=== PATIENT | female | born 2000 | race Caucasian/White ===

== ENCOUNTER 2022-03-17 15:09 | Emergency (ER) | payer MEDICAID, SELFPAY ==
[2022-03-17 15:14] VITALS: BP 122/81; PULSE 84; RESP 18; TEMP 36.2; O2SAT 98; BMI 40.6
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
== END 2022-03-17 18:05 | disposition home or self-care (01) ==
PROVIDERS: Emergency Provider Family Medicine; PCP Physician Assistant Medical
DX: S16.1XXA Strain of muscle, fascia and tendon at neck level, initial encounter (principal); V43.52XA Car driver injured in collision with other type car in traffic accident, initial encounter; Y92.413 State road as the place of occurrence of the external cause; Y93.89 Activity, other specified; Y99.8 Other external cause status
CPT/HCPCS: 71046; 72040; 99283

== ENCOUNTER 2022-05-02 16:23 | Outpatient (CLI) | payer MEDICAID, SELFPAY | END 2022-05-02 16:24 | disposition home or self-care (01) | PROVIDERS: PCP Physician Assistant Medical; Visit Provider Family Medicine | DX: R05.9 Cough, unspecified (principal) | CPT/HCPCS: 86615 ==

== ENCOUNTER 2022-09-13 15:31 | Outpatient (CLI) | payer MEDICAID, SELFPAY | END 2022-09-13 15:32 | disposition home or self-care (01) | PROVIDERS: PCP Physician Assistant Medical; Visit Provider Physician Assistant Medical | DX: E03.9 Hypothyroidism, unspecified (principal); R53.83 Other fatigue | CPT/HCPCS: 80053; 82306; 82607; 82728; 84439; 84443 ==

== ENCOUNTER 2022-12-25 21:06 | Outpatient (CLI) | payer MEDICAID, SELFPAY ==
--- NOTE | 2023-01-03 10:26 | W.PM.SLEEP ---
Sleep Study Details Details Interpreting Provider: Taty Date of Sleep Study: 12/25/22 Sleep Study Details: STUDY TYPE:? Hospital-based without CPAP titration ? BMI:? 42.2 ORDERING PROVIDER:? Taty INDICATION:? Concerns about sleep apnea ? SLEEP SUMMARY:? Total sleep time 392 minutes, efficiency 92.3, arousal index 40.4 RESPIRATORY SUMMARY:? Mean oxygen awake 95 asleep 94 minimum 83, 2.7 minutes oxygen between 80 and 88% AHI 17.6, RDI 27.4, supine REM AHI 36.3 PERIODIC LIMB MOVEMENTS OF SLEEP:? None were noted CARDIAC:? Awake 80, asleep 69. No arrhythmias noted IMPRESSION:? Moderate obstructive sleep apnea with an AHI of 17.6 an RDI of 27.4. There was significant REM dependency but minimal positional variation. RECOMMENDATION: Recommend AutoSet CPAP pressure 4-17. Weight loss is also recommended.
== END 2022-12-25 21:07 | disposition home or self-care (01) ==
LOC: SLEEP 21:07
PROVIDERS: PCP Physician Assistant Medical; Visit Provider Otolaryngology
DX: G47.33 Obstructive sleep apnea (adult) (pediatric) (principal)
CPT/HCPCS: 95810

== ENCOUNTER 2023-02-24 08:45 | Outpatient (CLI) | payer MEDICAID, SELFPAY | END 2023-02-24 08:46 | disposition home or self-care (01) | LOC: NFLDREF 02-26 07:25 | PROVIDERS: PCP Physician Assistant Medical; Referring Provider Physician Assistant Medical; Visit Provider Physician Assistant Medical | DX: E03.9 Hypothyroidism, unspecified (principal); F32.A Depression, unspecified; F41.9 Anxiety disorder, unspecified; K76.0 Fatty (change of) liver, not elsewhere classified; Z13.6 Encounter for screening for cardiovascular disorders | CPT/HCPCS: 80053; 80061; 84439; 84443 ==

== ENCOUNTER 2023-06-22 13:56 | Outpatient (CLI) | payer MEDICAID, SELFPAY | END 2023-06-22 13:57 | disposition home or self-care (01) | LOC: NFLDREF 06-23 05:49 | PROVIDERS: PCP Physician Assistant Medical; Referring Provider Physician Assistant Medical; Visit Provider Physician Assistant Medical | DX: E03.9 Hypothyroidism, unspecified (principal); K76.0 Fatty (change of) liver, not elsewhere classified; E66.01 Morbid (severe) obesity due to excess calories; F32.A Depression, unspecified | CPT/HCPCS: 84439; 84443; 84450; 84460 ==

== ENCOUNTER 2023-09-03 23:53 | Emergency (ER) | payer OTHER, MEDICAID, SELFPAY ==
[2023-09-04 00:18] VITALS: BP 144/95; PULSE 91; RESP 18; TEMP 36.6; O2SAT 97; BMI 46.3
[2023-09-04] MEDS: ACETAMINOPHEN 500 MG TABLET 1000 MG PO (00:36)
[2023-09-04] MEDS: KETOROLAC 10 MG TABLET PO (00:37)
--- NOTE | 2023-09-04 00:41 | ED.GENADULT ---
HPI - General Adult General Chief complaint: Skin/Abscess/Foreign Body Stated complaint: left toe pain, swollen ingrown Time Seen by Provider: 09/04/23 00:22 Source: patient Mode of arrival: ambulatory Limitations: no limitations History of Present Illness HPI narrative: 22-year-old female presents the emergency department for evaluation of what she thinks is an ingrown left toenail that has been present for 3 days. 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 She says that she went to her fuel technician for a pedicure today. They told her that there was no sign of an ingrown toenail. They completed the pedicure. Patient states that her symptoms have not improved and she thinks that something more in may need to be done. She did have drainage prior to the pedicure, none since. No fevers. She states that there is a little bit of redness around it, mother states that she marked the area of redness. It is quite difficult to appreciate. She says that the pain is throbbing. She tried taking some ibuprofen earlier in the day but none since. Has not tried Tylenol or any other interventions. No fevers. No recent surgeries. Not on chemotherapy, not immunocompromised. Past medical history notable for ADHD, anxiety and depression, hypothyroidism. Medications reviewed, list is accurate per EMR. ROS notable for the skin, musculoskeletal and general symptoms as above. Denies any other musculoskeletal, skin or general concerns. Related Data Home Medications Medication Instructions Recorded Confirmed multivitamin (Daily Multi-Vitamin 1 tab PO QAM 09/13/22 08/09/23 tablet) Previous Rx's Medication Instructions Recorded clonidine HCl 0.1 mg tablet See Rx Instructions .Route 06/22/23 .COMPLEX #90 tabs levonorgestrel 0.15 mg-ethinyl 1 tab PO DAILY #84 tabs 06/22/23 estradiol 0.03 mg tablet sertraline 100 mg tablet 100 mg PO DAILY #90 tabs 06/22/23 sertraline 50 mg tablet 50 mg PO QDAY #90 tabs 06/22/23 levothyroxine 112 mcg tablet 112 mcg PO QDAY #90 tabs 06/24/23 dextroamphetamine-amphetamine ER 20 mg PO QAM #30 caps 08/29/23 20 mg 24hr capsule,extend release (Adderall XR) dextroamphetamine-amphetamine ER 20 mg PO QAM #30 caps 08/29/23 20 mg 24hr capsule,extend release (Adderall XR) dextroamphetamine-amphetamine ER 20 mg PO QAM #30 caps 08/29/23 20 mg 24hr capsule,extend release (Adderall XR) nirmatrelvir 300 mg (150 mg See Rx Instructions PO .COMPLEX 08/29/23 x2)-ritonavir 100 mg tablet,dose #30 ea pack (Paxlovid) Allergies Allergy/AdvReac Type Severity Reaction Status Date / Time plum Allergy Intermediate Swelling Verified 08/09/23 17:30 of Lip/Tongue/Throat azithromycin AdvReac Mild Nausea and Verified 08/09/23 17:30 diarrhea apples Allergy Severe breathing Uncoded 08/09/23 17:30 difficulties, mouth swelling dairy AdvReac Intermediate Diarrhea Uncoded 08/09/23 17:30 PFSH PFS Medical History Sinusitis ?J32.9 - Chronic sinusitis, unspecified (ICD-10) Surgical History History of placement of ear tubes (06/22/07) ?Z96.22 - Myringotomy tube(s) status (ICD-10) History of adenoidectomy (06/22/07) ?Z90.89 - Acquired absence of other organs (ICD-10) Family History Brother Anxiety disorder Mother Hypothyroidism Biliary disease Social History Narrative: Does not drink alcohol Does not use illicit drugs Non-smoker What is your current living situation?: I presently have a place to live Problems where you live: no known problems In the past 12 months, utilities in danger of being shut off: no In past 12 months, lack of transportation kept you from medical appts, meetings, work, or getting things needed for daily living: no In the past 12 mos, have been you worried that your food would run out before you had money to buy more?: never true In the past 12 mos, the food you bought just didn't last and you didn't have money to buy more?: never true Smoking Status: Never smoker Do you use any of these nicotine containing products: None Second hand tobacco smoke exposure: No How often do you have a drink containing alcohol: never How often do you have six or more drinks on one occasion: Never AUDIT-C Alcohol total score: 0 Non-prescribed substance use: denies use How often does anyone, including family, friends and others, physically hurt you: never How often does anyone, including family, friends and others, insult or talk down to you: sometimes How often does anyone, including family, friends and others, threaten you with harm: never How often does anyone, including family, friends and others, scream or curse at you: sometimes Little interest or pleasure in doing things: not at all Feeling down, depressed, or hopeless: several days service: No Exam Const: Vital Signs, click to edit/add: Vital Signs - 24 hr 09/04/23 00:18 Temperature 97.9 F Pulse Rate [Pulse Oximeter] 91 Respiratory Rate 18 Blood Pressure [Le ft Upper Arm] 144/95 H Pulse Oximetry 97 Oxygen Delivery Me thod Room Air Documenting provider has reviewed patient's vital signs: yes Other: Mildly anxious but appears well nourished and well hydrated. Nontoxic. HENMT: Other: Lips appear acyanotic Eye: General eye: normal appearance of both eyes Resp: Common normals: normal respiratory effort Effort & inspection: able to speak in complete sentences Extremity: Other: both feet are examined. Right foot appears normal. Left foot with incredibly minimal color change at the medial 1st nail fold. I do not appreciate swelling. I do not appreciate any drainage. Fresh pedicure examined with excellent technique. No damage to the cuticles. Tender to palpation. Nursing triage also did not notice any significant abnormality on general inspection. Normal range of motion of toe and forefoot. No signs of swelling or tenderness at MTP joints. Plantar aspect appears normal. Remaining toes on left side also appear normal. Course Course ED Course: Minimal skin color change with absolutely no fluctuance, drainage, signs of cellulitis, abscess, gout or other major abnormality. I agree with a fuel technician that there does not seem to be any significant ingrown nail. Area was cleansed with an alcohol wipe and gently pressed back with Q-tip. I can see the entire nail edge very well and there is certainly no sign of ingrown toenail. I counseled patient and who I soon as her mother in the room that there could have been some inflammation but the nail trim has been done beautifully and no additional treatment is needed on my part. It does not seem as though there is persistent infection. I am very reassured that the nail has already drained. Antibiotics do not tend to help in these situations and can cause more harm than help. I recommend pain control and anti-inflammatories for a couple of days. She will be given Tylenol 1000 mg p.o. x1 here in the ED and 10 mg of Toradol. She is given an additional supply of Toradol from the vending machine in the lobby. Counseled that symptoms should be markedly better in 48 hours. Alarm symptoms that would warrant ED presentation were reviewed. She verbalizes understanding and agreement. See discharge instructions. Vital Signs Vital signs: Initial Vital Signs Temperature 97.9 F 09/04/23 00:18 Temperature Source Temporal Artery Scan 09/04/23 00:18 Pulse Rate 91 09/04/23 00:18 Respiratory Rate 18 09/04/23 00:18 Blood Pressure 144/95 H 09/04/23 00:18 Blood Pressure Mean 111 H 09/04/23 00:18 Blood Pressure Position Sitting 09/04/23 00:18 Pulse Oximetry 97 09/04/23 00:18 Oxygen Delivery Method Room Air 09/04/23 00:18 Vital Signs Temperature 97.9 F 09/04/23 00:18 Pulse Rate 91 09/04/23 00:18 Respiratory Rate 18 09/04/23 00:18 Blood Pressure 144/95 H 09/04/23 00:18 Pulse Oximetry 97 09/04/23 00:18 Oxygen Delivery Method Room Air 09/04/23 00:18 Temperature 97.9 F 09/04/23 00:18 Pulse Rate 91 09/04/23 00:18 Respiratory Rate 18 09/04/23 00:18 Blood Pressure 144/95 H 09/04/23 00:18 Pulse Oximetry 97 09/04/23 00:18 Oxygen Delivery Method Room Air 09/04/23 00:18 Medications Administered Medications: Generic Name Dose Route Start Last Admin Trade Name Freq PRN Reason Stop Dose Admin Acetaminophen 1,000 mg 09/04/23 00:34 09/04/23 00:36 Acetaminophen 500 Mg Tablet PO 09/04/23 00:35 1,000 mg ONCE ONE Administration Ketorolac Tromethamine 10 mg 09/04/23 00:34 09/04/23 00:37 Ketorolac 10 Mg Tablet PO 09/04/23 00:35 10 mg ONCE ONE Administration Discharge Plan Discharge Clinical Impression: Nail abnormality Patient Disposition: Home w/ Parent or Adult Condition: Stable Additional Instructions: I agree with your fuel technician, there is no ingrown nail. That does not mean that there was not inflammation on the nail edge which is more common. I am glad to hear that there was drainage, this is a sign that your body has tried to definitively correct the problem. There does not appear to be any additional fluid for me to drain. These areas of inflammation can happen along the nail edge in those that walk with the pressure of there foot too far forward, those that where point he tipped shoes, and those that are just susceptible. Your technician helper instrument did an excellent job trimming the edges and there is no benefit to me doing an additional cut down. Apply plain Vaseline along the nail edge or antibiotic ointment a couple of times per day for the next 3 days and gently push back the skin edge and or cuticle as I demonstrated here today. There is no need for an antibiotic. Hearing that the nail drained is the most important step in treatment. I do not see any further evidence of a foreign body or fungal infection. If you start to notice increased swelling, soak the foot in very warm soapy water for 45 minutes twice daily to help promote drainage and then gently push back the cuticles and skin edge again. In the future, treatment for this at home would be soaks and antibiotic ointment as described above. For pain, I recommend Tylenol 1000 mg every 6 hours. I have also given you a prescription for Toradol which is an anti-inflammatory medication. Take 1 tablet up to every 6 hours as needed. This should be markedly better in 48 hours. do not take additional Aleve or ibuprofen while you are using the Toradol. If you are not noticing any improvement after 48 hours, I would make a follow-up appointment in my primary care clinic and or urgent care. Any symptoms of severe infection would warrant emergency department evaluation. You may return to unrestricted work and or school. Activity Level: No Restrictions Discharge Diet: Regular Prescriptions: No Action clonidine HCl 0.1 mg tablet See Rx Instructions .ROUTE .COMPLEX Qty: 90 3RF Dose Instruction: TAKE ONE TABLET BY MOUTH AT BEDTIME . Rx Instructions: TAKE ONE TABLET BY MOUTH AT BEDTIME . sertraline 100 mg tablet 100 mg PO DAILY Qty: 90 3RF sertraline 50 mg tablet 50 mg PO QDAY Qty: 90 3RF levonorgestrel-ethinyl estrad 0.15-0.03 mg tablet 1 tab PO DAILY Qty: 84 4RF multivitamin [Daily Multi-Vitamin] Tablet 1 tab PO QAM levothyroxine 112 mcg tablet 112 mcg PO QDAY Qty: 90 0RF dextroamphetamine-amphetamine [Adderall XR] 20 mg capsule,extended release 24hr 20 mg PO QAM Qty: 30 0RF dextroamphetamine-amphetamine [Adderall XR] 20 mg capsule,extended release 24hr 20 mg PO QAM Qty: 30 0RF dextroamphetamine-amphetamine [Adderall XR] 20 mg capsule,extended release 24hr 20 mg PO QAM Qty: 30 0RF Paxlovid 300 mg (150 mg x 2)-100 mg tablets,dose pack See Rx Instructions PO .COMPLEX Qty: 30 0RF Rx Instructions: take TWO 150 mg tablets of nirmatrelvir with ONE 100 mg tablet of ritonavir twice daily for 5 days PO Follow Up/Referrals: Trent Ch PA-C [Primary Care Provider] - Stand Alone Forms: [facility] Info Instructions
[2023-09-04 00:51] VITALS: RESP 16; O2SAT 98
== END 2023-09-04 00:55 | disposition home or self-care (01) ==
LOC: ED 09-04 00:53
PROVIDERS: Emergency Provider Family Medicine; PCP Physician Assistant Medical
DX: L60.8 Other nail disorders (principal)
CPT/HCPCS: 99283; A9270

== ENCOUNTER 2023-10-20 16:04 | Emergency (ER) | payer OTHER, SELFPAY ==
[2023-10-20 16:09] VITALS: BP 137/75; PULSE 102; RESP 18; TEMP 36.7; O2SAT 96; BMI 47.6
--- NOTE | 2023-10-20 16:22 | CT_ITS ---
Patient: GE MORA Facility:?[facility] Patient ID:?[id number] Site Patient ID:?[id number]. Site :?[id number] Study:?CT-Abdomen/Pelvis W/128CC [id number]/26/2024 5:07:19 PM Ordering Physician:DEBBY Final Report: INDICATION: Left abdomen pain. TECHNIQUE: CT abdomen and pelvis acquired with 128 mL Isovue 370 contrast. COMPARISON: CT abdomen/pelvis dated 01/15/2021. FINDINGS: Lower chest: No focal consolidation. Liver: No suspicious focal hepatic lesion. Gallbladder and bile ducts: Unremarkable. Pancreas: Unremarkable. Spleen: Unremarkable. Adrenal glands: Unremarkable. Kidneys: Kidneys enhance symmetrically, without hydronephrosis. Retroperitoneum: No lymphadenopathy. Bowel and mesentery: Bowel is not obstructed. No significant ascites, no pneumoperitoneum. Normal appendix. Scattered prominent but subcentimeter mid abdominal mesenteric lymph nodes, not significantly changed. Bladder: Unremarkable for degree of distention. Reproductive organs: Unremarkable. Pelvic lymph nodes: No lymphadenopathy. Vessels: Unremarkable. Abdominal wall: No acute abdominal wall abnormality. Bones: No suspicious/aggressive focal osseous lesion. IMPRESSION: 1. No acute intra-abdominal abnormality identified. 2. 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 Please note that all CT scans at this facility use dose modulation, iterative reconstruction, and/or weight-based dosing when appropriate to reduce radiation dose to as low as reasonably achievable. Dictated by Tere Herrera MD @ 10/20/2023 5:54:13 PM Signed by:?eTre Herrera MD @10/20/2023 5:54:13 PM (Electronic Signature)
--- NOTE | 2023-10-20 16:24 | ED_ITS ---
HPI - General Adult General Chief complaint: Diarrhea Stated complaint: abdominal pain Time Seen by Provider: 10/20/23 16:06 History of Present Illness HPI narrative: This 22-year-old female comes in reporting left-sided abdominal pain that began yesterday. She has had some nausea, vomiting, and diarrhea. She states that the pain is something that comes and goes and sometimes gets rather intense. She does not report any symptoms of dysuria. There is no blood in the diarrhea or vomit. She does report a temperature measured at 101.3? prior to arrival. She arrives here with normal vital signs and a borderline tachycardia. She does report history of IBS but states that these symptoms seemed different. Related Data Home Medications Medication Instructions Recorded Confirmed multivitamin (Daily Multi-Vitamin 1 tab PO QAM 09/13/22 09/28/23 tablet) Previous Rx's Medication Instructions Recorded clonidine HCl 0.1 mg tablet See Rx Instructions .Route 06/22/23 .COMPLEX #90 tabs levonorgestrel 0.15 mg-ethinyl 1 tab PO DAILY #84 tabs 06/22/23 estradiol 0.03 mg tablet sertraline 100 mg tablet 100 mg PO DAILY #90 tabs 06/22/23 sertraline 50 mg tablet 50 mg PO QDAY #90 tabs 06/22/23 levothyroxine 112 mcg tablet 112 mcg PO QDAY #90 tabs 06/24/23 dextroamphetamine-amphetamine ER 20 mg PO QAM #30 caps 08/29/23 20 mg 24hr capsule,extend release (Adderall XR) dextroamphetamine-amphetamine ER 20 mg PO QAM #30 caps 08/29/23 20 mg 24hr capsule,extend release (Adderall XR) dextroamphetamine-amphetamine ER 20 mg PO QAM #30 caps 08/29/23 20 mg 24hr capsule,extend release (Adderall XR) ketorolac 10 mg tablet 10 mg PO Q8H 5 days #15 tabs 10/20/23 ondansetron HCl 4 mg tablet 4 mg PO Q6H #10 tabs 10/20/23 Allergies Allergy/AdvReac Type Severity Reaction Status Date / Time plum Allergy Intermediate Swelling Verified 09/28/23 18:07 of Lip/Tongue/Throat azithromycin AdvReac Mild Nausea and Verified 09/28/23 18:07 diarrhea apples Allergy Severe breathing Uncoded 09/28/23 18:07 difficulties, mouth swelling dairy AdvReac Intermediate Diarrhea Uncoded 09/28/23 18:07 Review of Systems Status of ROS: Reports: 10 or more systems reviewed and unremarkable except as noted in History and below Narrative: Constitutional: No fevers, no weight gain or loss. Eyes: No discharge. No vision changes. HENT: No congestion, no sore throat, no ear pain. Cardiovascular: No chest pain, no palpitations. Respiratory: No shortness of breath, no wheezes, no cough. Gastrointestinal: Abdominal pain on the left side with report of vomiting and diarrhea. Genitourinary: No dysuria, no hematuria. Musculoskeletal: Normal range of motion. Skin: No rashes, no pruritis. Neurological: No dizziness, weakness, sensory change, speech change. Endo/Heme/Allergies: No bruising or bleeding. No polydipsia. Pysch: no suicidality, no anxiety, no insomnia. All other systems reviewed and are negative. [facility] Medical History Sinusitis ?J32.9 - Chronic sinusitis, unspecified (ICD-10) Surgical History History of placement of ear tubes (06/22/07) ?Z96.22 - Myringotomy tube(s) status (ICD-10) History of adenoidectomy (06/22/07) ?Z90.89 - Acquired absence of other organs (ICD-10) Family History Brother Anxiety disorder Mother Hypothyroidism Biliary disease Social History Narrative: Does not drink alcohol Does not use illicit drugs Non-smoker What is your current living situation?: I presently have a place to live Problems where you live: no known problems In the past 12 months, utilities in danger of being shut off: no In past 12 months, lack of transportation kept you from medical appts, meetings, work, or getting things needed for daily living: no In the past 12 mos, have been you worried that your food would run out before you had money to buy more?: never true In the past 12 mos, the food you bought just didn't last and you didn't have money to buy more?: never true Smoking Status: Never smoker Do you use any of these nicotine containing products: None Second hand tobacco smoke exposure: No How often do you have a drink containing alcohol: never How often do you have six or more drinks on one occasion: Never AUDIT-C Alcohol total score: 0 Non-prescribed substance use: denies use How often does anyone, including family, friends and others, physically hurt you : never How often does anyone, including family, friends and others, insult or talk down to you: sometimes How often does anyone, including family, friends and others, threaten you with harm: never How often does anyone, including family, friends and others, scream or curse at you: sometimes Little interest or pleasure in doing things: not at all Feeling down, depressed, or hopeless: several days service: No Exam Narrative: Exam Narrative: Constitutional: Well-developed, well-nourished, no acute distress. HEENT: Normocephalic, atraumatic. Neck: Normal range of motion. Nontender. Supple. Heart: Regular. No murmurs. Normal rate. Intact distal pulses. Lungs: Clear to auscultation. No chest discomfort. No wheezes, rhonchi, or rales. Abdomen: Normal bowel sounds. Left sided abdominal pain. No rebound tenderness. Genitalia: Deferred. Back: No midline tenderness. Normal range of motion. Extremities: Normal range of motion. No injury. Skin: Intact. No rash. Warm. No erythema or pallor. Neurologic: No altered sensation. No weakness. Alert and oriented. Psychiatric: No suicidality. No anxiety or depression. No insomnia. Nursing notes and vitals signs are reviewed. Const: Vital Signs, click to edit/add: Vital Signs - 24 hr 10/20/23 16:09 10/20/23 18:00 Temperature 98.1 F Pulse Rate [Pulse Oximeter] 102 H 87 Respiratory Rate 18 20 Blood Pressure [Ri ght Upper Arm] 137/75 125/71 Pulse Oximetry 96 97 Oxygen Delivery Me thod Room Air Room Air Course Vital Signs Vital signs: Initial Vital Signs Temperature 98.1 F 10/20/23 16:09 Temperature Source Temporal Artery Scan 10/20/23 16:09 Pulse Rate 102 H 10/20/23 16:09 Respiratory Rate 18 10/20/23 16:09 Blood Pressure 137/75 10/20/23 16:09 Blood Pressure Mean 95 10/20/23 16:09 Blood Pressure Position Sitting 10/20/23 16:09 Pulse Oximetry 96 10/20/23 16:09 Oxygen Delivery Method Room Air 10/20/23 16:09 Vital Signs Temperature 98.1 F 10/20/23 16:09 Pulse Rate 102 H 10/20/23 16:09 Respiratory Rate 18 10/20/23 16:09 Blood Pressure 137/75 10/20/23 16:09 Pulse Oximetry 96 10/20/23 16:09 Oxygen Delivery Method Room Air 10/20/23 16:09 Temperature 98.1 F 10/20/23 16:09 Pulse Rate 87 10/20/23 18:00 Respiratory Rate 20 10/20/23 18:00 Blood Pressure 125/71 10/20/23 18:00 Pulse Oximetry 97 10/20/23 18:00 Oxygen Delivery Method Room Air 10/20/23 18:00 Medications Administered Medications: Discontinued Medications Generic Name Dose Route Start Last Admin Trade Name Freq PRN Reason Stop Dose Admin Sodium Chloride 1,000 mls @ 1,000 mls/hr 10/20/23 16:30 10/20/23 18:19 0.9 % Sodium Chloride 1000 Ml IV 10/20/23 17:29 Infused .Q1H TAVON Infusion Medical Decision Making MDM Narrative Medical decision making narrative: This 22-year-old female comes in reporting abdominal pain with vomiting and diarrhea as described above. An IV was established where she received fluids and labs are acquired. CT imaging also is obtained. These tests returned with no acute intra-abdominal abnormality identified on the scan and lab results also are reassuring. This patient does report history of irritable bowel syndrome but states that these symptoms are different somewhat. She has not typically had vomiting. She may have a gastroenteritis. She is okay to be discharged home. She did receive an IV dose of Toradol 15 mg and Zofran 4 mg. Prescriptions for these same medicines are also provided going forward. Lab Data Labs: Lab Results 10/20/23 10/20/23 Range/Units 16:35 18:56 WBC 7.36 (4.50-11.00) K/uL RBC 4.74 (4.00-5.20) m/uL Hgb 13.7 (12.0-16.0) gm/dL Hct 41.5 (33.0-51.0) % MCV 88 (80-100) fL MCH 29 (26-34) pg MCHC 33 (32-36) gm/dL RDW Coeff of Trav 13.7 (11.5-15.5) % Plt Count 314 (140-440) K/uL Neut % (Auto) 79.2 H (42.0-72.0) % Lymph % (Auto) 9.8 L (20-44) % [place] % (Auto) 9.4 (0.0-11.0) % Eos % (Auto) 1.2 (0.0-7.0) % Baso % (Auto) 0.3 (0.0-3.0) % Neut # (Auto) 5.80 (1.7-7.0) K/uL Lymph # (Auto) 0.70 L (0.90-2.90) K/uL [place] # (Auto) 0.70 (0.00-0.90) K/UL Eos # (Auto) 0.09 (0.00-0.50) K/uL Baso # (Auto) 0.02 (0.00-0.30) K/uL Abs Immat Gran (auto) 0.01 (0.00-0.30) K/uL Imm/Tot Granulo (auto) 0.1 % Sodium 139 (135-149) mmol/L Potassium 3.6 (3.6-5.1) mmol/L Chloride 107 (96-114) mmol/L Carbon Dioxide 21 (20-32) mmol/L Anion Gap 11 (7-15) mEq/L BUN 14 (5-24) mg/dL Creatinine 0.8 (0.5-1.5) mg/dL Estimated Creat Clear 85.76 Estimated GFR 105 ml/min Glucose 92 (60-115) mg/dL Calcium 9.3 (8.4-10.6) mg/dL Urine Color Yellow (Yellow) Urine Appearance Clear (Clear) Urine pH 6.0 (5.0-8.5) Ur Specific [place] <= 1.005 (1.000-1.030) Urine Protein Negative (Negative) Urine Glucose (UA) Negative (Negative) Urine Ketones 2+ A (Negative) Urine Blood Negative (Negative) Urine Nitrite Negative (Negative) Urine Bilirubin Negative (Negative) Urine Urobilinogen 0.2 (0.2-1.0) Ur Leukocyte Esterase Negative (Negative) Urine RBC 0-2 (0-2) Urine WBC 0-2 (0-5) Ur Squamous Epith Cells None (None-Few) Urine Bacteria Few A (None) Imaging Data CT scan - abdomen: Radiologist's impression: 1. No acute intra-abdominal abnormality identified. 2. 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 Discharge Plan Discharge Clinical Impression: Gastroenteritis Patient Disposition: Home w/ Parent or Adult Additional Instructions: Take medication as needed and directed. Frequent sips of fluids and increase diet as tolerated. Follow up with MD return if worsening. Prescriptions: New ondansetron HCl 4 mg tablet 4 mg PO Q6H Qty: 10 0RF ketorolac 10 mg tablet 10 mg PO Q8H 5 Days Qty: 15 0RF No Action clonidine HCl 0.1 mg tablet See Rx Instructions .ROUTE .COMPLEX Qty: 90 3RF Dose Instruction: TAKE ONE TABLET BY MOUTH AT BEDTIME . Rx Instructions: TAKE ONE TABLET BY MOUTH AT BEDTIME . sertraline 100 mg tablet 100 mg PO DAILY Qty: 90 3RF sertraline 50 mg tablet 50 mg PO QDAY Qty: 90 3RF levonorgestrel-ethinyl estrad 0.15-0.03 mg tablet 1 tab PO DAILY Qty: 84 4RF multivitamin [Daily Multi-Vitamin] Tablet 1 tab PO QAM levothyroxine 112 mcg tablet 112 mcg PO QDAY Qty: 90 0RF dextroamphetamine-amphetamine [Adderall XR] 20 mg capsule,extended release 24hr 20 mg PO QAM Qty: 30 0RF dextroamphetamine-amphetamine [Adderall XR] 20 mg capsule,extended release 24hr 20 mg PO QAM Qty: 30 0RF dextroamphetamine-amphetamine [Adderall XR] 20 mg capsule,extended release 24hr 20 mg PO QAM Qty: 30 0RF Follow Up/Referrals: Trent Ch, EDUARDOC [Primary Care Provider] - Stand Alone Forms: [facility] Info Instructions
[2023-10-20 16:43] LABS: Basophils Absolute Auto 0.02 K/uL (0.00-0.30); Basophils Percent Auto 0.3 % (0.0-3.0); Eosinophils Absolute Auto 0.09 K/uL (0.00-0.50); Eosinophils Percent Auto 1.2 % (0.0-7.0); Hematocrit 41.5 % (33.0-51.0); Hemoglobin* 13.7 gm/dL (12.0-16.0); Immature Granulocytes Abs Auto 0.01 K/uL (0.00-0.30); Immature Granulocytes Pct Auto 0.1 %; Lymphocytes Percent Auto 9.8 % (20-44); Mean Corpuscular HGB Conc 33 gm/dL (32-36); Mean Corpuscular Hemoglobin 29 pg (26-34); Mean Corpuscular Volume 88 fL (80-100); Monocytes Percent Auto 9.4 % (0.0-11.0); Neutrophils Percent Auto 79.2 % (42.0-72.0); Platelet Count* 314 K/uL (140-440); RDW Coefficient of Variation % 13.7 % (11.5-15.5); Red Blood Count 4.74 m/uL (4.00-5.20); White Blood Count* 7.36 K/uL (4.50-11.00)
[2023-10-20 16:44] LABS: Slide Review Reflex No
[2023-10-20 17:01] LABS: Chloride* 107 mmol/L (96-114); Potassium* 3.6 mmol/L (3.6-5.1); Sodium* 139 mmol/L (135-149)
[2023-10-20 17:04] LABS: Anion Gap 11 mEq/L (7-15); Blood Urea Nitrogen* 14 mg/dL (5-24); Carbon Dioxide* 21 mmol/L (20-32); Creatinine* 0.8 mg/dL (0.5-1.5); Est. Creatinine Clearance* 85.76; Estimated Glomerular Filt Rate 105 ml/min
[2023-10-20 17:05] LABS: Calcium* 9.3 mg/dL (8.4-10.6); Glucose* 92 mg/dL (60-115)
[2023-10-20] MEDS: 0.9 % SODIUM CHLORIDE 1000 ml 1,000 ML IV (17:05)
[2023-10-20 18:00] VITALS: BP 125/71; PULSE 87; RESP 20; O2SAT 97
[2023-10-20 19:02] LABS: Appearance Urine Clear (Clear); Bilirubin Urine Negative (Negative); Blood Urine Negative (Negative); Color Urine Yellow (Yellow); Glucose Urine Negative (Negative); Ketones Urine 2+ (Negative); Leukocyte Esterase Urine Negative (Negative); Nitrite Urine Negative (Negative); Protein Urine Negative (Negative); Specific Gravity Urine <= 1.005 (1.000-1.030); Urobilinogen Urine 0.2 (0.2-1.0)
[2023-10-20 19:12] LABS: Bacteria Urine Few; RBC Urine 0-2 (0-2); WBC Urine 0-2 (0-5)
== END 2023-10-20 19:48 | disposition home or self-care (01) ==
PROVIDERS: Emergency Provider Emergency Medicine Emergency Medical Services; PCP Physician Assistant Medical
DX: K52.9 Noninfective gastroenteritis and colitis, unspecified (principal)
CPT/HCPCS: 36415; 74177; 80048; 81001; 85025; 87086; 96361; 96374; 96375; 99284; 99285; J7030; Q9967

== ENCOUNTER 2023-12-29 09:10 | Outpatient (CLI) | payer OTHER, SELFPAY | END 2023-12-29 09:11 | disposition home or self-care (01) | LOC: NFLDREF 12-31 10:06 | PROVIDERS: PCP Physician Assistant Medical; Referring Provider Physician Assistant Medical; Visit Provider Physician Assistant Medical | DX: E03.9 Hypothyroidism, unspecified (principal) | CPT/HCPCS: 84443 ==

== ENCOUNTER 2024-08-01 15:25 | Outpatient (CLI) | payer BC, SELFPAY | END 2024-08-01 15:26 | disposition home or self-care (01) | LOC: NFLDREF 08-07 03:24 | PROVIDERS: PCP Physician Assistant Medical; Referring Provider Physician Assistant Medical; Visit Provider Physician Assistant Medical | DX: E03.9 Hypothyroidism, unspecified (principal); E66.01 Morbid (severe) obesity due to excess calories; K76.0 Fatty (change of) liver, not elsewhere classified; F41.9 Anxiety disorder, unspecified; F32.A Depression, unspecified; F51.01 Primary insomnia | CPT/HCPCS: 80053; 80061; 84439; 84443 ==

== ENCOUNTER 2024-08-12 11:13 | Outpatient (CLI) | payer BC, SELFPAY ==
[2024-08-14 16:44] LABS: HPV Source Cervix; HPV, High Risk by TMA Detected
[2024-08-14 21:28] LABS: HPV Genotype 16 by TMA Not Detected; HPV Genotype 18/45 by TMA Not Detected; HPVG Source Cervix
== END 2024-08-12 11:14 | disposition home or self-care (01) ==
PROVIDERS: PCP Physician Assistant Medical; Visit Provider Physician Assistant
DX: Z12.4 Encounter for screening for malignant neoplasm of cervix (principal); Z11.51 Encounter for screening for human papillomavirus (HPV)
CPT/HCPCS: 87624; 87625; 88141; 88142

== ENCOUNTER 2025-04-17 21:56 | Day surgery (SDC) | payer BC, SELFPAY ==
--- OUTSIDE RECORDS SUMMARY | 2025-04-17 21:59 | XMS_ITS | Clinical Summary ---
Author Organization [facility] Address [address] [place] [id number] Care Team Providers Care Food Sampler Name Role Phone Trent Ch PA-C Primary Care Provider [phone] Allergies Active Allergy Reactions Criticality Noted Date Comments Azithromycin Nausea And Vomiting, Nausea Only,Vomiting Low 01/15/2021 Milk Diarrhea High 03/01/2019 Medications cloNIDine HCl (CATAPRES) 0.1 mg tablet Take 0.1 mg by mouth. Active dextroamphetamin e-amphetamine (ADDERALL) 20 mg tablet Take 25 mg by mouth. Active escitalopram oxalate (LEXAPRO) 10 mg tablet Take 10 mg by mouth once daily. 5 12/17/2018 Active ipratropium (ATROVENT HFA) 17 mcg/actuation inhaler Inhale 2 Puffs by mouth. 06/02/2018 Active melatonin 3 mg tablet Take 3 mg by mouth. Active levothyroxine (SYNTHROID) 100 mcg tablet Take 100 mcg by mouth once daily. 03/01/2023 Active sertraline (ZOLOFT) 100 mg tablet Take 150 mg by mouth once daily. 03/15/2023 Active levonorgestrel-e thinyl estrad, 0.15-30 mg-mcg, (LEVLEN; NORDETTE-28) 0.15-0.03 mg tablet Active Active Problems No known active problems Family History Relation Name Status Comments Father Alive Mother Alive Social History Tobacco Use Types Packs/Day Years Used Date Smoking Tobacco: Never Smokeless Tobacco: Never Alcohol Use Standard Drinks/Week Comments Yes 0 (1 standard drink = 0.6 oz pur e alcohol) Comments No Sex and Gender Information Value Date Recorded Sex Assigned at Not on file Legal Sex Female 10:33 AM CDT Gender Identity Not on file Sexual Orientation Not on file Obstetrics History Last Filed Vital Signs Vital Sign Reading Time Taken Comments Blood Pressure 114/77 05/20/2023 12:06 PM PSYCHOLOGY ASSISTANT Pulse 84 05/20/2023 12:06 PM PSYCHOLOGY ASSISTANT Temperature 36.4 C (97.5 F) 05/20/2023 12:06 PM PSYCHOLOGY ASSISTANT Respiratory Rate 20 05/20/2023 12:06 PM PSYCHOLOGY ASSISTANT Oxygen Saturation 97% 05/20/2023 12:06 PM PSYCHOLOGY ASSISTANT Inhaled Oxygen Concentration - - Weight 108.9 kg (240 lb) 05/20/2023 12:06 PM PSYCHOLOGY ASSISTANT Height 157.5 cm (5' 2) 05/20/2023 12:06 PM PSYCHOLOGY ASSISTANT Body Mass Index 43.9 05/20/2023 12:06 PM PSYCHOLOGY ASSISTANT Plan of Treatment Health Maintenance Due Date Last Done Comments Tetanus booster 2009 Depression screening for age 12+ 2010 HIV for age 15-65 2013 HPV series for age 9-45 (1 - 3-dose series) 2013 Hepatitis C screening for ag e 18-79 2016 Hepatitis B series for 19+ ( 1 of 3 - 19+ 3-dose series) 2017 Pap test for age 21-65 11/11/2019 BMI (ht and wt on same day) for age 18+ 05/14/2024 05/14/2023 COVID-19 vaccine series ( season) 2025 06/05/2021, 10/04/2020, 09/06/2020 Influenza Vaccine (#1) 2025 RSV vaccine for adults or (1 - 1-dose 75+ series) 2073 Pneumococcal series for age 6-49 Aged Out No longer eligible b ased on patient's age to complete this topic Insurance [place] [id number] [place] [id number] Care Teams Food Sampler Relationship Specialty Start Date End Date Trent Ch PA-C [address] [place] [id number] PCP - General Physician Tomato Grader 05/20/23
--- OUTSIDE RECORDS SUMMARY | 2025-04-17 21:59 | XMS_ITS | Clinical Summary ---
Author Organization [facility] Address [address], [place] [address] Care Team Providers Care Cheese Weigher Name Role Phone Narendra Piper MD Primary Care Provider + Source Comments You are receiving this document as you are listed as the primary care provider,follow-up provider, or the patient has been referred to you for consultation.This is in compliance with the Medicare andOhio[facility] Cent[facility]aid EHR Incentive Program,which states Providers who transition their patient to another setting of careor provider of care or refers their patient to another provider of care shouldprovide summary care record for each transition of care or referral. [facility] All[facility] No known active allergies Medications cloNIDine (CATAPRES) 0.1 MG tablet Take 0.1 mg by mouth two times a day. Active escitalopram oxalate (LEXAPRO) 10 MG tablet Take 10 mg by mouth daily. Active amphetamine-dext roamphetamine (ADDERALL) 20 MG tablet Take 20 mg by mouth daily. Active melatonin 3 MG tablet Take 3 mg by mouth daily at bedtime. Active azithromycin (ZITHROMAX) 250 MG tabletIndication s:Lower respiratory tract infection Take two tablets on the first day, and take one tablet each day on days 2-5 6 Tablet 8 Active Additional Information Patient not taking.Reported on 01/11/2020 ipratropium (ATROVENT HFA) 17 mcg/actuation inhalerIndicatio ns:Lower respiratory tract infection Inhale 2 Puffs two times a day. 12.9 g 8 Active Active Problems No known active problems Social History Tobacco Use Types Packs/Day Years Used Date Smoking Tobacco: Never Smokeless Tobacco: Never Alcohol Use Standard Drinks/Week Comments Yes 0 (1 standard drink = 0.6 oz pur e alcohol) Comments No Sex and Gender Information Value Date Recorded Sex Assigned at Not on file Legal Sex Female 4:36 PM HUMAN RESOURCES REPRESENTATIVE Gender Identity Not on file Sexual Orientation Not on file Last Filed Vital Signs Vital Sign Reading Time Taken Comments Blood Pressure 141/87 01/11/2020 10:11 PM CDT Pulse 88 01/11/2020 10:11 PM CDT Temperature 36.7 C (98 F) 01/11/2020 10:11 PM CDT Respiratory Rate 16 01/11/2020 10:11 PM CDT Oxygen Saturation 95% 01/11/2020 10:11 PM CDT Inhaled Oxygen Concentration - - Weight 86.6 kg (191 lb) 06/02/2018 2:25 PM HUMAN RESOURCES REPRESENTATIVE Height 154.9 cm (5' 1) 05/29/2018 2:36 PM HUMAN RESOURCES REPRESENTATIVE Body Mass Index 36.09 05/29/2018 2:36 PM HUMAN RESOURCES REPRESENTATIVE Plan of Treatment Health Maintenance Due Date Last Done Comments Cervical Cancer Screening Due 1998 Hep C Screening (Preventive Services) 1998 HIV Screening (Preventive Services) 2014 Adult Preventive Visit 2016 HepB Vaccine (1) 2017 COVID-19 Vaccine ( season) 2025 10/04/2020, 09/06/2020 Influenza Vaccine (#1) 2025 , 03/27/2018, 03/29/2017, Additional history exists DTaP/Tdap/Td Vaccine (8 - Tdap) 11/06/2030 11/06/2020, 02/13/2011, 01/31/2003, Additional history exists Zoster/Shingles Vaccine (1 of 2) 2048 Hib Vaccine Aged Out 10/06/1999, 08/1999, 04/12/1999, Additional history exists No longer eligible based on patient's age to complete this topic IPV (Polio) Vaccine Completed 01/31/2003, 10/06/1999, 04/12/1999, Additional history exists HPV Vaccine Completed 02/18/2014, 05/26, 04/04/2013 HepA Vaccine Completed 02/18/2014, 04/04/2013 MCV4 Vaccine Completed 02/12/2015, 04/04/2013 Meningococcal B Vaccine Aged Out No l onger eligible based on patient's age to complete this topic Pneumococcal Vaccine Aged Out No long er eligible based on patient's age to complete this topic Insurance [employer] Care Teams Cheese Weigher Relationship Specialty Start Date End Date Narendra Piper MD [address] [place] [address] PCP - General 01/11/20
[2025-04-17 22:16] VITALS: BP 134/78; PULSE 83; RESP 16; TEMP 36.4; O2SAT 97; BMI 47.6
[2025-04-18] VITALS (22 sets, daily range): BP systolic 108–150; BP diastolic 58–91; PULSE 73–120; RESP 8–18; TEMP 36.3–36.9; O2SAT 90–96; BMI 49.5
--- NOTE | 2025-04-18 | CRLHL7_ITS ---
For Patients: As a result of the Century Cures Act, medical imaging exams and procedure reports are released immediately into your electronic medical record. You may view this report before your referring provider. If you have questions, please contact your health care provider. INDICATION: Right lower quadrant abdominal pain. TECHNIQUE: CT abdomen and pelvis acquired with 128 cc Isovue 370 IV contrast. COMPARISON: CT abdomen pelvis 10/20/2023. FINDINGS: Lower chest: Unremarkable. Liver: Mild hepatic steatosis. Gallbladder and bile ducts: Unremarkable. Pancreas: Unremarkable. Spleen: Unremarkable. Adrenal glands: Unremarkable. Kidneys: Symmetric renal enhancement. No hydronephrosis or hydroureter. No obstructing calculi. GI tract: Trace periappendiceal inflammatory changes, although the appendix is normal in caliber. No periappendiceal fluid collection. No bowel obstruction. No suspicious bowel wall thickening. Vasculature: No abdominal aortic aneurysm. Grossly patent vasculature. Lymph nodes: No suspicious lymphadenopathy. Several mildly prominent mesenteric lymph nodes, similar to prior. Peritoneum/Abdominal Wall: No ascites or pneumoperitoneum. No acute abdominal wall abnormality. Pelvis: Normal bladder. No suspicious adnexal mass. Bones: No acute abnormality. IMPRESSION: 1. While the appendix is normal in caliber, the presence of trace periappendiceal inflammatory changes raises the possibility of very early/developing acute appendicitis. 2. Mild hepatic steatosis. 3. Grossly unchanged mildly prominent mesenteric lymph nodes, nonspecific, but may be seen in the setting of sclerosing mesenteritis or mesenteric adenitis in the appropriate clinical context. Please note that all CT scans at this facility use dose modulation, iterative reconstruction, and/or weight-based dosing when appropriate to reduce radiation dose to as low as reasonably achievable. Dictated by Robert Jimenez MD @ 04/18/2025 2:03:15 AM (Electronically Signed)
--- NOTE | 2025-04-18 00:47 | ED.ABDPAIN ---
HPI - Abdominal Pain General Date Seen: 04/18/25 <Jas Torres MD - Last Filed: 04/24/25 09:49> Chief Complaint: Abdominal Pain <aJs Torres MD - Last Filed: 04/24/25 09:49> Stated Complaint: R abdomen pain <Jas Torres MD - Last Filed: 04/24/25 09:49> Time Seen by Provider: 04/17/25 23:46 <Jas Torres MD - Last Filed: 04/24/25 09:49> Source: patient <Jas Torres MD - Last Filed: 04/24/25 09:49> Mode of arrival: ambulatory <Jas Torres MD - Last Filed: 04/24/25 09:49> Limitations: no limitations <Jas Torres MD - Last Filed: 04/24/25 09:49> History of Present Illness HPI narrative: Patient is a delightful 24-year-old female who presents here with right lower quadrant pain, for the last 2-3 hours, she describes as waxing and waning and almost colicky in nature, no radiation to her back, not worse when she takes a deep breath in some very mild nausea associated with this, but no vomiting no dysuria frequency, no hematuria associated with this and no diarrhea. She does have a history of IBS, but says this feels much different than that. Came on while she was just sitting. She did not take any medications feels a little fevers the last couple days and also has loose stools. <Jas Torres MD - Last Filed: 04/24/25 09:49> MD elicited complaint: abdominal pain <Jas Torres MD - Last Filed: 04/24/25 09:49> Pertinent past history: none <Jas Torres MD - Last Filed: 04/24/25 09:49> Onset (ago): hour(s) <Jas Torres MD - Last Filed: 04/24/25 09:49> Location: RLQ <Jas Torres MD - Last Filed: 04/24/25 09:49> Severity: moderate <Jas Torres MD - Last Filed: 04/24/25 09:49> Quality: cramping and stabbing <Jas Torres MD - Last Filed: 04/24/25 09:49> Radiation: none <Jas Torres MD - Last Filed: 04/24/25 09:49> Migration to: no migration <Jas Torres MD - Last Filed: 04/24/25 09:49> Exacerbating factors: nothing <Jas Torres MD - Last Filed: 04/24/25 09:49> Relieving factors: nothing <Jas Torres MD - Last Filed: 04/24/25 09:49> Associated symptoms: nausea and diarrhea <Jas Torres MD - Last Filed: 04/24/25 09:49> Related Data Date of last menstrual period: 04/11/25 <Jas Torres MD - Last Filed: 04/24/25 09:49> Patient : No <Jas Torres MD - Last Filed: 04/24/25 09:49> Home Medications: Home Medications ?Medication ?Instructions ?Recorded ?Confirmed multivitamin (Daily Multi-Vitamin 1 tab PO QAM 09/13/22 04/18/25 tablet) Previous Rx's ?Medication ?Instructions ?Recorded clonidine HCl 0.1 mg tablet See Rx Instructions .Route 06/18/24 .COMPLEX #90 tabs dextroamphetamine-amphetamine ER 20 mg PO QAM #30 caps 08/01/24 20 mg 24hr capsule,extend release (Adderall XR) sertraline 100 mg tablet 100 mg PO DAILY #90 tabs 08/01/24 sertraline 50 mg tablet 50 mg PO QDAY #90 tabs 08/01/24 levothyroxine 125 mcg tablet 125 mcg PO QDAY #90 tabs 08/05/24 sumatriptan succinate 25 mg tablet See Rx Instructions PO .COMPLEX 10/14/24 #14 tabs levonorgestrel 0.15 mg-ethinyl 1 tab PO DAILY #84 tabs 11/11/24 estradiol 0.03 mg tablet Ventolin HFA 90 mcg/actuation 2 puff inhalation Q4-6H PRN 03/17/25 aerosol inhaler (albuterol sulfate) shortness of breath or wheezing #8 grams hydrocodone 5 mg-acetaminophen 325 1 tab PO Q6H PRN pain #15 tabs 04/18/25 mg tablet sennosides 8.6 mg capsule (senna) 8.6 mg PO DAILY PRN constipation 04/18/25 #90 caps <Jas Torres MD - Last Filed: 04/24/25 09:49> Allergies/Adverse Reactions: Allergies Allergy/AdvReac Type Severity Reaction Status Date / Time plum Allergy Intermediate Swelling Verified 03/17/25 15:28 of Lip/Tongue/Throat azithromycin AdvReac Mild Nausea and Verified 03/17/25 15:28 diarrhea apples Allergy Severe breathing Uncoded 03/17/25 15:28 difficulties, mouth swelling dairy AdvReac Intermediate Diarrhea Uncoded 03/17/25 15:28 <Jas Torres MD - Last Filed: 04/24/25 09:49> Review of Systems Status of ROS Reports: 10 or more systems reviewed and unremarkable except as noted in History and below <Jas Torres MD - Last Filed: 04/24/25 09:49> [facility] Medical History: Medical History Bronchitis ?J40 - Bronchitis, not specified as acute or chronic (ICD-10) Sinusitis ?J32.9 - Chronic sinusitis, unspecified (ICD-10) <Jas Torres MD - Last Filed: 04/24/25 09:49> Surgical History: Surgical History History of placement of ear tubes (06/22/07) ?Z96.22 - Myringotomy tube(s) status (ICD-10) History of adenoidectomy (06/22/07) ?Z90.89 - Acquired absence of other organs (ICD-10) <Jas Torres MD - Last Filed: 04/24/25 09:49> Family History: Family History Brother Anxiety disorder Mother Hypothyroidism Biliary disease <Jas Torres MD - Last Filed: 04/24/25 09:49> Social History: Social History Narrative: Does not drink alcohol Does not use illicit drugs Non-smoker What is your current living situation?: I presently have a place to live Problems where you live: no known problems In the past 12 months, utilities in danger of being shut off: no In past 12 months, lack of transportation kept you from medical appts, meetings, work, or getting things needed for daily living: no In the past 12 mos, have been you worried that your food would run out before you had money to buy more?: never true In the past 12 mos, the food you bought just didn't last and you didn't have money to buy more?: never true Smoking Status: Never smoker Do you use any of these nicotine containing products: None Second hand tobacco smoke exposure: No How often do you have a drink containing alcohol: 2-4 times a month How often do you have six or more drinks on one occasion: Never AUDIT-C Alcohol total score: 2 Non-prescribed substance use: denies use Non-prescribed substance use details: THC gummies How often does anyone, including family, friends and others, physically hurt you: never How often does anyone, including family, friends and others, insult or talk down to you: sometimes How often does anyone, including family, friends and others, threaten you with harm: never How often does anyone, including family, friends and others, scream or curse at you: sometimes service: No Health Related Social Needs: Other personal risk factors, not elsewhere classified (Z91.89) <Jas Torres MD - Last Filed: 04/24/25 09:49> Exam Narrative: Exam Narrative: On examination in room 1 she is in no apparent distress, she is pleasant alert pupils equal round reactive to light there is no scleral icterus redness or TMs are normal oropharynx normal there is no adenopathy anterior posterior chains, her neck is supple full range of motion her chest is good air entry bilaterally no wheezing crackles noted she does have tenderness in her right lower quadrant on moderately deep palpation, she does not have a rebound sign and there is no other signs of a peritoneal abdomen. No masses or when she has a negative Gutierrez's test. Skin reveals no petechiae rashes. <Jas Torres MD - Last Filed: 04/24/25 09:49> Const: Vital Signs, click to edit/add: Vital Signs - 24 hr 04/17/25 22:16 Temperature 97.6 F Pulse Rate [Pulse Oximeter] 83 Respiratory Rate 16 Blood Pressure [Ri ght Upper Arm] 134/78 Pulse Oximetry 97 Oxygen Delivery Me thod Room Air <Jas Torres MD - Last Filed: 04/24/25 09:49> Vital Signs, click to edit/add: Vital Signs - 24 hr 04/17/25 22:16 Temperature 97.6 F Pulse Rate [Pulse Oximeter] 83 Respiratory Rate 16 Blood Pressure [Ri ght Upper Arm] 134/78 Pulse Oximetry 97 Oxygen Delivery Me thod Room Air <Kendy Woody MD - Last Filed: 04/18/25 04:01> Documenting provider has reviewed patient's vital signs: yes <Jas Torres MD - Last Filed: 04/24/25 09:49> Course Course ED Course: Dr. Woody: I assumed care from outgoing evening provider. Patient had labs completed but CT pending. CT does show early appendicitis. Patient without signs of sepsis. She and I discussed the diagnosis and we did discuss conservative management with antibiotics and close outpatient follow-up. We discussed that unfortunately this does have a 50 50 failure rate and sometimes surgery is still needed. Patient has wait out these options and would prefer surgical management. I spoke with the surgeon on-call and she is agreeable to hospitalization and plan for surgical treatment and appendectomy later today. Will start patient on Zosyn, LR and admit to same-day surgery. Hospitalist has accepted admission. <Kendy Woody MD - Last Filed: 04/18/25 04:01> Vital Signs Vital signs: Initial Vital Signs Temperature 97.6 F 04/17/25 22:16 Temperature Source Temporal Artery Scan 04/17/25 22:16 Pulse Rate 83 04/17/25 22:16 Pulse Rhythm Regular 04/17/25 22:16 Respiratory Rate 16 04/17/25 22:16 Blood Pressure 134/78 04/17/25 22:16 Blood Pressure Mean 96 04/17/25 22:16 Blood Pressure Position Sitting 04/17/25 22:16 Pulse Oximetry 97 04/17/25 22:16 Oxygen Delivery Method Room Air 04/17/25 22:16 Vital Signs Temperature 97.6 F 04/17/25 22:16 Pulse Rate 83 04/17/25 22:16 Respiratory Rate 16 04/17/25 22:16 Blood Pressure 134/78 04/17/25 22:16 Pulse Oximetry 97 04/17/25 22:16 Oxygen Delivery Method Room Air 04/17/25 22:16 Temperature 98.1 F 04/19/25 07:50 Pulse Rate 75 04/19/25 07:50 Respiratory Rate 16 04/19/25 07:50 Blood Pressure 130/77 04/19/25 07:50 Pulse Oximetry 92 04/19/25 07:50 Oxygen Delivery Method Room Air 04/19/25 07:50 Oxygen Flow Rate 2 04/18/25 17:50 <Jas Torres MD - Last Filed: 04/24/25 09:49> Initial Vital Signs Temperature 97.6 F 04/17/25 22:16 Temperature Source Temporal Artery Scan 04/17/25 22:16 Pulse Rate 83 04/17/25 22:16 Pulse Rhythm Regular 04/17/25 22:16 Respiratory Rate 16 04/17/25 22:16 Blood Pressure 134/78 04/17/25 22:16 Blood Pressure Mean 96 04/17/25 22:16 Blood Pressure Position Sitting 04/17/25 22:16 Pulse Oximetry 97 04/17/25 22:16 Oxygen Delivery Method Room Air 04/17/25 22:16 Vital Signs Temperature 97.6 F 04/17/25 22:16 Pulse Rate 83 04/17/25 22:16 Respiratory Rate 16 04/17/25 22:16 Blood Pressure 134/78 04/17/25 22:16 Pulse Oximetry 97 04/17/25 22:16 Oxygen Delivery Method Room Air 04/17/25 22:16 Temperature 98.1 F 04/19/25 07:50 Pulse Rate 75 04/19/25 07:50 Respiratory Rate 16 04/19/25 07:50 Blood Pressure 130/77 04/19/25 07:50 Pulse Oximetry 92 04/19/25 07:50 Oxygen Delivery Method Room Air 04/19/25 07:50 Oxygen Flow Rate 2 04/18/25 17:50 <Kendy Woody MD - Last Filed: 04/18/25 04:01> Medications Administered Medications: Discontinued Medications Generic Name Dose Route Start Last Admin Trade Name Freq PRN Reason Stop Dose Admin Acetaminophen 650 mg 04/18/25 05:00 04/18/25 20:42 Acetaminophen 325 Mg Tablet PO 650 mg Q6H PRN Administration Hydrocodone Bitart/Acetaminophen 1 - 2 tab 04/18/25 18:27 04/19/25 08:14 Hydrocodone-Acetamin 5-325 Mg 1 Tab PO 2 tab Q6H PRN Administration Pain Bupivacaine HCl 30 ml 04/18/25 15:37 04/18/25 15:37 Bupivacaine 0.25% 30 Ml INJECTION 04/18/25 15:38 20 ml ONCE ONE Administration Clonidine HCl 0.1 mg 04/18/25 21:00 04/18/25 21:36 Clonidine Hcl 0.1 Mg Tablet PO 0.1 mg BEDTIME TAVON Administration Hydromorphone HCl 0.5 mg 04/18/25 01:01 04/18/25 01:09 Hydromorphone 0.5 Mg/0.5 Ml Inj IVP 04/18/25 01:02 0.5 mg ONCE ONE Administration Hydromorphone HCl 0.5 mg 04/18/25 02:20 04/18/25 02:48 Hydromorphone 0.5 Mg/0.5 Ml Inj IVP 0.5 mg Q2H PRN Administration Pain Hydromorphone HCl 0.5 mg 04/18/25 14:03 04/18/25 17:33 Hydromorphone 0.5 Mg/0.5 Ml Inj IVP 0.5 mg Q10M PRN Administration Sodium Chloride 1,000 mls @ 1,000 mls/hr 04/17/25 23:45 04/18/25 01:17 0.9 % Sodium Chloride 1000 Ml IV 04/18/25 00:44 Infused .Q1H TAVON Infusion Piperacillin Sod/Tazobactam 100 mls @ 200 mls/hr 04/18/25 02:30 04/18/25 20:49 Sod 3.375 gm/ Sodium Chloride IVPB Infused Q6H TAVON Infusion Lactated Ringer's 1,000 mls @ 150 mls/hr 04/18/25 02:20 04/18/25 21:08 Lactated Ringers 1000 Ml IV Infused .Q6H40M TAVON Infusion Levothyroxine Sodium 125 mcg 04/18/25 06:00 04/19/25 05:59 Levothyroxine 125 Mcg Tablet PO 125 mcg DAILY@0600 TAVON Administration Non-Formulary Medication 1 tab 04/18/25 09:00 04/19/25 08:16 Levonorgestrel-Ethinyl Estrad PO Not Given DAILY TAVON Oxycodone HCl 5 mg 04/18/25 05:00 04/18/25 11:00 Oxycodone 5 Mg Tablet PO 5 mg Q4H PRN Administration Pain Sertraline HCl 100 mg 04/18/25 09:00 04/19/25 08:14 Sertraline 100 Mg Tablet PO 100 mg DAILY TAVON Administration Sertraline HCl 50 mg 04/18/25 09:00 04/19/25 08:14 Sertraline 50 Mg Tablet PO 50 mg DAILY TAVON Administration Sodium Chloride 5 ml 04/18/25 09:00 04/18/25 09:28 Sodium Chloride 0.9 % (Flush) 10 Ml Syringe IVF Not Given BID TAVON <Jas Torres MD - Last Filed: 04/24/25 09:49> Discontinued Medications Generic Name Dose Route Start Last Admin Trade Name Freq PRN Reason Stop Dose Admin Acetaminophen 650 mg 04/18/25 05:00 04/18/25 20:42 Acetaminophen 325 Mg Tablet PO 650 mg Q6H PRN Administration Hydrocodone Bitart/Acetaminophen 1 - 2 tab 04/18/25 18:27 04/19/25 08:14 Hydrocodone-Acetamin 5-325 Mg 1 Tab PO 2 tab Q6H PRN Administration Pain Bupivacaine HCl 30 ml 04/18/25 15:37 04/18/25 15:37 Bupivacaine 0.25% 30 Ml INJECTION 04/18/25 15:38 20 ml ONCE ONE Administration Clonidine HCl 0.1 mg 04/18/25 21:00 04/18/25 21:36 Clonidine Hcl 0.1 Mg Tablet PO 0.1 mg BEDTIME TAVON Administration Hydromorphone HCl 0.5 mg 04/18/25 01:01 04/18/25 01:09 Hydromorphone 0.5 Mg/0.5 Ml Inj IVP 04/18/25 01:02 0.5 mg ONCE ONE Administration Hydromorphone HCl 0.5 mg 04/18/25 02:20 04/18/25 02:48 Hydromorphone 0.5 Mg/0.5 Ml Inj IVP 0.5 mg Q2H PRN Administration Pain Hydromorphone HCl 0.5 mg 04/18/25 14:03 04/18/25 17:33 Hydromorphone 0.5 Mg/0.5 Ml Inj IVP 0.5 mg Q10M PRN Administration Sodium Chloride 1,000 mls @ 1,000 mls/hr 04/17/25 23:45 04/18/25 01:17 0.9 % Sodium Chloride 1000 Ml IV 04/18/25 00:44 Infused .Q1H TAVON Infusion Piperacillin Sod/Tazobactam 100 mls @ 200 mls/hr 04/18/25 02:30 04/18/25 20:49 Sod 3.375 gm/ Sodium Chloride IVPB Infused Q6H TAVON Infusion Lactated Ringer's 1,000 mls @ 150 mls/hr 04/18/25 02:20 04/18/25 21:08 Lactated Ringers 1000 Ml IV Infused .Q6H40M TAVON Infusion Levothyroxine Sodium 125 mcg 04/18/25 06:00 04/19/25 05:59 Levothyroxine 125 Mcg Tablet PO 125 mcg DAILY@0600 TAVON Administration Non-Formulary Medication 1 tab 04/18/25 09:00 04/19/25 08:16 Levonorgestrel-Ethinyl Estrad PO Not Given DAILY TAVON Oxycodone HCl 5 mg 04/18/25 05:00 04/18/25 11:00 Oxycodone 5 Mg Tablet PO 5 mg Q4H PRN Administration Pain Sertraline HCl 100 mg 04/18/25 09:00 04/19/25 08:14 Sertraline 100 Mg Tablet PO 100 mg DAILY TAVON Administration Sertraline HCl 50 mg 04/18/25 09:00 04/19/25 08:14 Sertraline 50 Mg Tablet PO 50 mg DAILY TAVON Administration Sodium Chloride 5 ml 04/18/25 09:00 04/18/25 09:28 Sodium Chloride 0.9 % (Flush) 10 Ml Syringe IVF Not Given BID TAVON <Kendy Woody MD - Last Filed: 04/18/25 04:01> MDM - Abdominal Pain MDM Narrative Medical decision making narrative: During the evaluation of this patient I considered multiple differential diagnosis including life-threatening differentials which are appendicitis, aortic aneurysm, mesenteric ischemia, bowel perforation, ectopic , volvulus and bowel obstruction, other differential diagnosis include but are not limited to inflammatory bowel disease, cholecystitis, pancreatitis, hepatitis, gastritis, GERD, diverticulitis, peptic ulcer disease, pyelonephritis/UTI, renal colic/stone, pelvic inflammatory disease, cervicitis, endometritis, intrauterine , dysfunctional uterine bleeding, ovarian cyst/torsion, spontaneous as well as other etiologies <Jas Torres MD - Last Filed: 04/24/25 09:49> Medical Records Attestation: I reviewed the patient's medical records. <Jas Torres MD - Last Filed: 04/24/25 09:49> Lab Data Attestation: I reviewed the patient's lab results. <Kendy Woody MD - Last Filed: 04/18/25 04:01> Lab results narrative: No significant leukocytosis. Liver reflective of mild underlying fatty liver but electrolytes are reassuring. Urine is concentrated, test negative. <Kendy Woody MD - Last Filed: 04/18/25 04:01> Labs: Lab Results 04/17/25 04/17/25 Range/Units 00:35 01:03 WBC 10.95 (4.50-11.00) K/uL RBC 4.60 (4.00-5.20) m/uL Hgb 13.1 (12.0-16.0) gm/dL Hct 40.3 (33.0-51.0) % MCV 88 (80-100) fL MCH 29 (26-34) pg MCHC 33 (32-36) gm/dL RDW Coeff of Trav 13.1 (11.5-15.5) % Plt Count 378 (140-440) K/uL Neut % (Auto) 57.9 (42.0-72.0) % Lymph % (Auto) 33.1 (20-44) % Villalba % (Auto) 6.5 (0.0-11.0) % Eos % (Auto) 2.0 (0.0-7.0) % Baso % (Auto) 0.2 (0.0-3.0) % Neut # (Auto) 6.35 (1.7-7.0) K/uL Lymph # (Auto) 3.62 H (0.90-2.90) K/uL Villalba # (Auto) 0.70 (0.00-0.90) K/UL Eos # (Auto) 0.22 (0.00-0.50) K/uL Baso # (Auto) 0.02 (0.00-0.30) K/uL Abs Immat Gran (auto) 0.03 (0.00-0.30) K/uL Imm/Tot Granulo (auto) 0.3 % Sodium 135 (135-149) mmol/L Potassium 3.8 (3.6-5.1) mmol/L Chloride 100 (96-114) mmol/L Carbon Dioxide 26 (20-32) mmol/L Anion Gap 9 (7-15) mEq/L BUN 12 (5-24) mg/dL Creatinine 0.8 (0.5-1.5) mg/dL Estimated Creat Clear 84.28 Estimated GFR 104 ml/min Glucose 112 (60-115) mg/dL Calcium 9.4 (8.4-10.6) mg/dL Total Bilirubin 0.3 (0.1-1.5) mg/dL Direct Bilirubin 0.2 (0.0-0.5) mg/dL AST 34 (12-35) U/L ALT 41 H (4-35) U/L Alkaline Phosphatase 68 (40-150) U/L Total Protein 7.8 (6.0-8.3) g/dL Albumin 4.6 (3.3-5.0) g/dL Amylase 61 (18-89) U/L Lipase 43 (23-300) U/L Procalcitonin 0.05 (<0.50) ng/mL Urine Color Yellow (Yellow) Urine Appearance Clear (Clear) Urine pH 6.0 (5.0-8.5) Ur Specific Stow >= 1.030 (1.000-1.030) Urine Protein Negative (Negative) Urine Glucose (UA) Negative (Negative) Urine Ketones Negative (Negative) Urine Blood 3+ A (Negative) Urine Nitrite Negative (Negative) Urine Bilirubin Negative (Negative) Urine Urobilinogen 0.2 (0.2-1.0) Ur Leukocyte Esterase Negative (Negative) Urine RBC 10-25 A (0-2) Urine WBC 0-2 (0-5) Ur Squamous Epith Cells Few (None-Few) Urine Bacteria Few A (None) Urine HCG, Qual Negative (Negative) <Jas Torres MD - Last Filed: 04/24/25 09:49> Lab Results 04/17/25 04/17/25 Range/Units 00:35 01:03 WBC 10.95 (4.50-11.00) K/uL RBC 4.60 (4.00-5.20) m/uL Hgb 13.1 (12.0-16.0) gm/dL Hct 40.3 (33.0-51.0) % MCV 88 (80-100) fL MCH 29 (26-34) pg MCHC 33 (32-36) gm/dL RDW Coeff of Trav 13.1 (11.5-15.5) % Plt Count 378 (140-440) K/uL Neut % (Auto) 57.9 (42.0-72.0) % Lymph % (Auto) 33.1 (20-44) % Villalba % (Auto) 6.5 (0.0-11.0) % Eos % (Auto) 2.0 (0.0-7.0) % Baso % (Auto) 0.2 (0.0-3.0) % Neut # (Auto) 6.35 (1.7-7.0) K/uL Lymph # (Auto) 3.62 H (0.90-2.90) K/uL Villalba # (Auto) 0.70 (0.00-0.90) K/UL Eos # (Auto) 0.22 (0.00-0.50) K/uL Baso # (Auto) 0.02 (0.00-0.30) K/uL Abs Immat Gran (auto) 0.03 (0.00-0.30) K/uL Imm/Tot Granulo (auto) 0.3 % Sodium 135 (135-149) mmol/L Potassium 3.8 (3.6-5.1) mmol/L Chloride 100 (96-114) mmol/L Carbon Dioxide 26 (20-32) mmol/L Anion Gap 9 (7-15) mEq/L BUN 12 (5-24) mg/dL Creatinine 0.8 (0.5-1.5) mg/dL Estimated Creat Clear 84.28 Estimated GFR 104 ml/min Glucose 112 (60-115) mg/dL Calcium 9.4 (8.4-10.6) mg/dL Total Bilirubin 0.3 (0.1-1.5) mg/dL Direct Bilirubin 0.2 (0.0-0.5) mg/dL AST 34 (12-35) U/L ALT 41 H (4-35) U/L Alkaline Phosphatase 68 (40-150) U/L Total Protein 7.8 (6.0-8.3) g/dL Albumin 4.6 (3.3-5.0) g/dL Amylase 61 (18-89) U/L Lipase 43 (23-300) U/L Procalcitonin 0.05 (<0.50) ng/mL Urine Color Yellow (Yellow) Urine Appearance Clear (Clear) Urine pH 6.0 (5.0-8.5) Ur Specific Stow >= 1.030 (1.000-1.030) Urine Protein Negative (Negative) Urine Glucose (UA) Negative (Negative) Urine Ketones Negative (Negative) Urine Blood 3+ A (Negative) Urine Nitrite Negative (Negative) Urine Bilirubin Negative (Negative) Urine Urobilinogen 0.2 (0.2-1.0) Ur Leukocyte Esterase Negative (Negative) Urine RBC 10-25 A (0-2) Urine WBC 0-2 (0-5) Ur Squamous Epith Cells Few (None-Few) Urine Bacteria Few A (None) Urine HCG, Qual Negative (Negative) <Kendy Woody MD - Last Filed: 04/18/25 04:01> Imaging Data CT scan - abdomen: Attestation: I have reviewed the pertinent imaging results. <Kendy Woody MD - Last Filed: 04/18/25 04:01> Radiologist's impression: IMPRESSION: 1. While the appendix is normal in caliber, the presence of trace periappendiceal inflammatory changes raises the possibility of very early/developing acute appendicitis. 2. Mild hepatic steatosis. 3. Grossly unchanged mildly prominent mesenteric lymph nodes, nonspecific, but may be seen in the setting of sclerosing mesenteritis or mesenteric adenitis in the appropriate clinical context. Please note that all CT scans at this facility use dose modulation, iterative reconstruction, and/or weight-based dosing when appropriate to reduce radiation dose to as low as reasonably achievable. Dictated by Robert Jimenez MD @ 04/18/2025 2:03:15 AM <Kendy Woody MD - Last Filed: 04/18/25 04:01> Discharge Plan Discharge Clinical Impression: Acute appendicitis <Jas Torres MD - Last Filed: 04/24/25 09:49> Patient Disposition: XFER to OR <Jas Torres MD - Last Filed: 04/24/25 09:49> Condition: Stable <Jas Torres MD - Last Filed: 04/24/25 09:49>
--- OUTSIDE RECORDS SUMMARY | 2025-04-18 00:51 | XMS_ITS | Clinical Summary ---
Author Organization [facility] Address [address] [place] [id number] Care Team Providers Care Bed And Breakfast Operator Name Role Phone Trent Ch PA-C Primary Care Provider [phone] Allergies Active Allergy Reactions Criticality Noted Date [...] Comments Blood Pressure 114/77 05/20/2023 12:06 PM DITCHING MACHINE OPERATOR Pulse 84 05/20/2023 12:06 PM DITCHING MACHINE OPERATOR Temperature 36.4 C (97.5 F) 05/20/2023 12:06 PM DITCHING MACHINE OPERATOR Respiratory Rate 20 05/20/2023 12:06 PM DITCHING MACHINE OPERATOR Oxygen Saturation 97% 05/20/2023 12:06 PM DITCHING MACHINE OPERATOR Inhaled Oxygen Concentration - - Weight 108.9 kg (240 lb) 05/20/2023 12:06 PM DITCHING MACHINE OPERATOR Height 157.5 cm (5' 2) 05/20/2023 12:06 PM DITCHING MACHINE OPERATOR Body Mass Index 43.9 05/20/2023 12:06 PM DITCHING MACHINE OPERATOR Plan of Treatment Health Maintenance Due Date [...] topic Insurance [place] [id number] [place] [id number] Care Teams Bed And Breakfast Operator Relationship Specialty Start Date End Date Trent Ch PA-C [address] [place] [id number] PCP - General Physician All Around [facility] 05/20/23
--- OUTSIDE RECORDS SUMMARY | 2025-04-18 00:51 | XMS_ITS | Clinical Summary ---
Author Organization [facility] Address [address], [place] [address] Care Team Providers Care Interventional Physician Name Role Phone Narendra Piper MD Primary Care Provider + Source Comments You are receiving this document as you are listed as the primary care provider,follow-up provider, or the patient has been referred to you for consultation.This is in compliance with the Medicare and[facility] Incentive Program,which states Providers who transition their patient to another setting of careor provider of care or refers their patient to another provider of care shouldprovide summary care record for each transition of care or referral. [facility] No known active allergies Medications cloNIDine [...] on file Legal Sex Female 4:36 PM FUND MANAGER Gender Identity Not on file Sexual Orientation [...] 86.6 kg (191 lb) 06/02/2018 2:25 PM FUND MANAGER Height 154.9 cm (5' 1) 05/29/2018 2:36 PM FUND MANAGER Body Mass Index 36.09 05/29/2018 2:36 PM FUND MANAGER Plan of Treatment Health Maintenance Due Date [...] this topic Insurance CARE [employer] Care Teams Interventional Physician Relationship Specialty Start Date End Date Narendra Piper MD [id number] [place] [address] PCP - General 01/11/20
[2025-04-18 00:57] LABS: Hematocrit* 40.3 % (33.0-51.0); Hemoglobin* 13.1 gm/dL (12.0-16.0); Immature Granulocytes Abs Auto 0.03 K/uL (0.00-0.30); Immature Granulocytes Pct Auto 0.3 %; Lymphocytes Absolute Auto 3.62 K/uL (0.90-2.90); Mean Corpuscular HGB Conc 33 gm/dL (32-36); Mean Corpuscular Hemoglobin 29 pg (26-34); Mean Corpuscular Volume 88 fL (80-100); RDW Coefficient of Variation % 13.1 % (11.5-15.5); Red Blood Count* 4.60 m/uL (4.00-5.20); White Blood Count* 10.95 K/uL (4.50-11.00)
[2025-04-18 01:02] LABS: Slide Review Reflex No
[2025-04-18 01:12] LABS: Albumin* 4.6 g/dL (3.3-5.0); Chloride* 100 mmol/L (96-114); Potassium* 3.8 mmol/L (3.6-5.1); Sodium* 135 mmol/L (135-149)
[2025-04-18 01:15] LABS: Alanine Aminotransferase* 41 U/L (4-35); Alkaline Phosphatase* 68 U/L (40-150); Anion Gap 9 mEq/L (7-15); Aspartate Amino Transferase* 34 U/L (12-35); Bilirubin Direct* 0.2 mg/dL (0.0-0.5); Bilirubin Total* 0.3 mg/dL (0.1-1.5); Blood Urea Nitrogen* 12 mg/dL (5-24); Calcium* 9.4 mg/dL (8.4-10.6); Carbon Dioxide* 26 mmol/L (20-32); Creatinine* 0.8 mg/dL (0.5-1.5); Est. Creatinine Clearance* 84.28; Estimated Glomerular Filt Rate 104 ml/min; Glucose* 112 mg/dL (60-115); Total Protein* 7.8 g/dL (6.0-8.3)
[2025-04-18 01:24] LABS: Appearance Urine Clear (Clear)
[2025-04-18 01:27] LABS: Ur HCG Qualitative* Negative (Negative)
[2025-04-18 01:32] LABS: Procalcitonin* 0.05 ng/mL (<0.50)
[2025-04-18] MEDS: LACTATED RINGERS 1000 ML 1,000 ML 150 ML IV ×3 (02:49→16:28)
[2025-04-18] MEDS: PIPERACILLIN/TAZOBACTAM 3.375 GM in 0.9 % SODIUM CHLORIDE Mini-bag 100 ML IVPB ×3 (02:57→15:09)
--- NOTE | 2025-04-18 05:04 | W.PM.THH&P_ITS ---
Telehealth- H&P: HPI History of Present Illness Time Seen by Provider: 04:34 Date Seen: 04/18/25 Chief complaint: R abdomen pain Narrative: Obdulia Hernandez is seen as an Interactive Telehealth visit. Obdulia Hernandez is a 24 year old female with past medical history significant for SHANE, obesity hypothyroidism, hepatosteatosis, ADHD, depression and anxiety, asthma who is presenting to emergency department with complaints of right-sided abdominal pain. Patient reports pain started 2 hours prior to coming into the emergency department. She initially thought it was a cramping pain and appeared similar to her. Pain however it gradually got worse. She also became nauseous. She says she googled her symptoms and found him concerning for appendicitis and came to the emergency department for further evaluation. She denies any fever or chills. No headache dizziness. No history of hypertension or diabetes. No previous cardiac history. Workup in the emergency department showed unremarkable CBC and BMP. CT abdomen pelvis showed presence of periappendiceal inflammatory changes raising possibility of early or developing acute appendicitis. Mild hepatic steatosis. Grossly unchanged mildly prominent mesenteric lymph nodes nonspecific could be in the setting of sclerosing mesenteritis or mesenteric adenitis. ER provider discussed case with general surgery on-call and they recommended admission, n.p.o., IV fluids and IV antibiotics with the plan for surgery this morning. Review of Systems Narrative: Complete ROS was performed, pertinent positives and negatives per HPI. [facility] Medical History Bronchitis ?J40 - Bronchitis, not specified as acute or chronic (ICD-10) Sinusitis ?J32.9 - Chronic sinusitis, unspecified (ICD-10) Surgical History History of placement of ear tubes (06/22/07) ?Z96.22 - Myringotomy tube(s) status (ICD-10) History of adenoidectomy (06/22/07) ?Z90.89 - Acquired absence of other organs (ICD-10) Family History Brother Anxiety disorder Mother Hypothyroidism Biliary disease Social History Narrative: Does not drink alcohol Does not use illicit drugs Non-smoker What is your current living situation?: I presently have a place to live Problems where you live: no known problems In the past 12 months, utilities in danger of being shut off: no In past 12 months, lack of transportation kept you from medical appts, meetings, work, or getting things needed for daily living: no In the past 12 mos, have been you worried that your food would run out before you had money to buy more?: never true In the past 12 mos, the food you bought just didn't last and you didn't have money to buy more?: never true Smoking Status: Never smoker Do you use any of these nicotine containing products: None Second hand tobacco smoke exposure: No How often do you have a drink containing alcohol: 2-4 times a month How often do you have six or more drinks on one occasion: Never AUDIT-C Alcohol total score: 2 Non-prescribed substance use: denies use Non-prescribed substance use details: THC gummies How often does anyone, including family, friends and others, physically hurt you : never How often does anyone, including family, friends and others, insult or talk down to you: sometimes How often does anyone, including family, friends and others, threaten you with harm: never How often does anyone, including family, friends and others, scream or curse at you: sometimes service: No Health Related Social Needs: Other personal risk factors, not elsewhere classified (Z91.89) Meds Home Medications and Allergies Home Medications ?Medication ?Instructions ?Recorded ?Confirmed ?Type multivitamin (Daily Multi-Vitamin 1 tab PO QAM 3 03/17/25 History tablet) clonidine HCl 0.1 mg tablet See Rx Instructions .Route 06/18/24 03/17/25 Rx .COMPLEX #90 tabs dextroamphetamine-amphetamine ER 20 mg PO QAM #30 caps 08/01/24 03/17/25 Rx 20 mg 24hr capsule,extend release (Adderall XR) sertraline 100 mg tablet 100 mg PO DAILY #90 tabs 12/1803/17/25 Rx sertraline 50 mg tablet 50 mg PO QDAY #90 tabs 08/0103/17/25 Rx levothyroxine 125 mcg tablet 125 mcg PO QDAY #90 tabs 08/05/24 03/17/25 Rx ondansetron 4 mg disintegrating 4 mg PO Q8H PRN nausea and 10/14/24 03/17/25 Rx tablet vomiting #30 tabs sumatriptan succinate 25 mg tablet See Rx Instructions PO .COMPLEX 10/14/24 03/17/25 Rx #14 tabs levonorgestrel 0.15 mg-ethinyl 1 tab PO DAILY #84 tabs 11/11/24 03/17/25 Rx estradiol 0.03 mg tablet Ventolin HFA 90 mcg/actuation 2 puff inhalation Q4-6H PRN 03/17/25 03/17/25 Rx aerosol inhaler (albuterol sulfate) shortness of breat h or wheezing #8 grams benzonatate 200 mg capsule 200 mg PO BID-TID PRN cough #30 03/17/25 03/17/25 Rx caps Allergies Allergy/AdvReac Type Severity Reaction Status Date / Time plum Allergy Intermediate Swelling Verified 03/17/25 15:28 of Lip/Tongue/Throat azithromycin AdvReac Mild Nausea and Verified 03/17/25 15:28 diarrhea apples Allergy Severe breathing Uncoded 03/17/25 15:28 difficulties, mouth swelling dairy AdvReac Intermediate Diarrhea Uncoded 03/17/25 15:28 Exam Narrative Exam Narrative: Physical Exam GENERAL: ?vital signs reviewed, well developed and nourished, in no distress HEENT: pupils are equal round and reactive to light NECK: Supple HEART: Regular rate and rhythm without any rubs, murmurs, or gallops. LUNGS: Clear to auscultation bilaterally with good air movement throughout ABDOMEN: Observation from nurse assisted exam, abdomen appears soft, non tender on left and upper abd. + Tenderness on RLQ. + bowel sounds present. EXTREMITIES: Strength and sensation is observed to be grossly within normal limits in the upper and lower extremities.? No focal strength deficit is observed. SKIN:? Observed warm and dry with color normal Const Vital Signs, click to edit/add: Vital Signs - 24 hr 04/17/25 22:16 04/18/25 04:01 Temperature 97.6 F 98.4 F Pulse Rate [Pulse Oximeter] 83 78 Respiratory Rate 16 17 Blood Pressure [Left Arm] 138/76 Blood Pressure [Right Upper Arm] 134/78 Pulse Oximetry 97 94 Oxygen Delivery Method Room Air Room Air Hospitalist - H&P: Result Labs Labs: Short CBC 04/17/25 Range/Units 00:35 WBC 10.95 (4.50-11.00) K/uL Hgb 13.1 (12.0-16.0) gm/dL Hct 40.3 (33.0-51.0) % Plt Count 378 (140-440) K/uL BMP 04/17/25 00:35 Sodium 135 Potassium 3.8 Chloride 100 Carbon Dioxide 26 BUN 12 Creatinine 0.8 Glucose 112 Calcium 9.4 Liver Function 04/17/25 Range/Units 00:35 Total Bilirubin 0.3 (0.1-1.5) mg/dL Direct Bilirubin 0.2 (0.0-0.5) mg/dL AST 34 (12-35) U/L ALT 41 H (4-35) U/L Alkaline Phosphatase 68 (40-150) U/L Albumin 4.6 (3.3-5.0) g/dL Urine 04/17/25 Range/Units 01:03 Urine Color Yellow (Yellow) Urine Appearance Clear (Clear) Urine pH 6.0 (5.0-8.5) Ur Specific [place] >= 1.030 (1.000-1.030) Urine Protein Negative (Negative) Urine Glucose (UA) Negative (Negative) Assessment and Plan Assessment and plan (1) Acute appendicitis: Status: Acute (2) SHANE on CPAP: Status: Acute (3) Obesity, morbid, BMI 40.0-49.9: Status: Acute (4) Hypothyroidism: Status: Acute (5) Attention deficit disorder: Problem comment: records pending, diagnosed at age 5 substance agreement form signed 06/17 Status: Acute Plan Assess patient is a 24-year-old female with history of ADHD, anxiety depression, SHANE, hypothyroidism, hepatic steatosis who is presenting to emergency department with complaints of right-sided lower abdominal pain. CT showed findings concerning for early appendicitis. General surgery is aware. Plan - admit pt to general medical floor - cont with NPO, pain control, anti emetics - cont zosyn q6 hours - Cont IV fluids - General surgery consulted by ER provider. They recommended admisison with plan to take pt to OR this am. Chronic problems # SHANE # OBesity # Hypothyroidism # Hepatic Steatosis # ADHD # Depression/Anxiety # Insomnia - review and reconcile home meds. Total Time Spent Total Time Spent: 60 min Telehealth: Statement Statement Telehealth Visit: Today's History and Physical is provided via interactive telehealth by Anika Parisi MD.? Patient is located at [facility].? Provider is located at [facility].? Nursing staff assisted with the patient's exam. The visit being done today meets criteria for a telehealth visit and the patient or patient?s parent/guardian is aware the visit is a telehealth visit. Camera Start Time: 04:34 Camera End Time: 05:02
[2025-04-18] MEDS: LEVOTHYROXINE 125 MCG TABLET PO (06:26)
--- NOTE | 2025-04-18 08:24 | PC.NURSE ---
Shift note ([id number]): Patient admitted from ED at 0353. Arrived in wheelchair.?Pt pleasant, alert and oriented. Ambulates independently. Had some ice chips and a sip of water with her 0600 Levothyroxine; has otherwise been NPO. Rated abdominal pain /. BS active. Mom Kimberley at bedside since admission.?
[2025-04-18] MEDS: ACETAMINOPHEN 325 MG TABLET 650 MG PO ×2 (09:22→20:42)
--- NOTE | 2025-04-18 11:59 | PM.GSCN ---
History of Present Illness Consult details Date Seen: 04/18/25 Consult date: 04/18/25 Narrative: Patient presented to the emergency department with 1 day history of right-sided abdominal pain. The pain started as a generalized ache on the right side at 7:00 p.m.. She was laying down watching a football game at that time. During the night the pain became much more severe, prompting her to come in. She has never had pain like this before. She did have some associated nausea and overall has a decrease in appetite. No fevers. She has never had abdominal surgery before. This morning her pain is improved. She does report having aches and generalized fatigue last week after receiving the COVID and flu vaccine. Review of Systems Status of ROS: Reports: 10 or more systems reviewed and unremarkable except as noted in History and below [facility] Medical History Bronchitis ?J40 - Bronchitis, not specified as acute or chronic (ICD-10) Sinusitis ?J32.9 - Chronic sinusitis, unspecified (ICD-10) Surgical History History of placement of ear tubes (06/22/07) ?Z96.22 - Myringotomy tube(s) status (ICD-10) History of adenoidectomy (06/22/07) ?Z90.89 - Acquired absence of other organs (ICD-10) Family History Brother Anxiety disorder Mother Hypothyroidism Biliary disease Social History Narrative: Does not drink alcohol Does not use illicit drugs Non-smoker What is your current living situation?: I presently have a place to live Problems where you live: no known problems In the past 12 months, utilities in danger of being shut off: no In past 12 months, lack of transportation kept you from medical appts, meetings, work, or getting things needed for daily living: no In the past 12 mos, have been you worried that your food would run out before you had money to buy more?: never true In the past 12 mos, the food you bought just didn't last and you didn't have money to buy more?: never true Smoking Status: Never smoker Do you use any of these nicotine containing products: None Second hand tobacco smoke exposure: No How often do you have a drink containing alcohol: 2-4 times a month How often do you have six or more drinks on one occasion: Never AUDIT-C Alcohol total score: 2 Non-prescribed substance use: denies use Non-prescribed substance use details: THC gummies How often does anyone, including family, friends and others, physically hurt you: never How often does anyone, including family, friends and others, insult or talk down to you: sometimes How often does anyone, including family, friends and others, threaten you with harm: never How often does anyone, including family, friends and others, scream or curse at you: sometimes service: No Health Related Social Needs: Other personal risk factors, not elsewhere classified (Z91.89) Meds Home Medications and Allergies Home Medications ?Medication ?Instructions ?Recorded ?Confirmed ?Type multivitamin (Daily Multi-Vitamin 1 tab PO QAM 09/13/22 04/18/25 History tablet) clonidine HCl 0.1 mg tablet See Rx Instructions .Route 06/18/24 04/18/25 Rx .COMPLEX #90 tabs dextroamphetamine-amphetamine ER 20 mg PO QAM #30 caps 08/01/24 03/17/25 Rx 20 mg 24hr capsule,extend release (Adderall XR) sertraline 100 mg tablet 100 mg PO DAILY #90 tabs 08/01/24 04/18/25 Rx sertraline 50 mg tablet 50 mg PO QDAY #90 tabs 08/01/24 04/18/25 Rx levothyroxine 125 mcg tablet 125 mcg PO QDAY #90 tabs 08/05/24 03/17/25 Rx sumatriptan succinate 25 mg tablet See Rx Instructions PO .COMPLEX 10/14/24 04/18/25 Rx #14 tabs levonorgestrel 0.15 mg-ethinyl 1 tab PO DAILY #84 tabs 11/11/24 04/18/25 Rx estradiol 0.03 mg tablet Ventolin HFA 90 mcg/actuation 2 puff inhalation Q4-6H PRN 03/17/25 04/18/25 Rx aerosol inhaler (albuterol sulfate) shortness of breath or wheezing #8 grams hydrocodone 5 mg-acetaminophen 325 1 tab PO Q6H PRN pain #15 tabs 04/18/25 Rx mg tablet sennosides 8.6 mg capsule (senna) 8.6 mg PO DAILY PRN constipation 04/18/25 Rx #90 caps Allergies Allergy/AdvReac Type Severity Reaction Status Date / Time plum Allergy Intermediate Swelling Verified 03/17/25 15:28 of Lip/Tongue/Throat azithromycin AdvReac Mild Nausea and Verified 03/17/25 15:28 diarrhea apples Allergy Severe breathing Uncoded 03/17/25 15:28 difficulties, mouth swelling dairy AdvReac Intermediate Diarrhea Uncoded 03/17/25 15:28 Exam Narrative: Exam Narrative: General: Alert and oriented, no acute distress Respiratory: Equal breath rise, maintained on room air. CV: Well perfused Abdomen: Obese abdomen, soft and nontender. Const: Vital Signs, click to edit/add: Vital Signs - 24 hr 04/17/25 22:16 04/18/25 04:01 04/18/25 09:34 Temperature 97.6 F 98.4 F 98 F Pulse Rate [Pulse Oximeter] 83 78 78 Respiratory Rate 16 17 14 Blood Pressure [Le ft Arm] 138/76 132/68 Blood Pressure [Ri ght Upper Arm] 134/78 Pulse Oximetry 97 94 95 Oxygen Delivery Me thod Room Air Room Air 04/18/25 09:34 04/18/25 11:05 Temperature 97.8 F Pulse Rate [Pulse Oximeter] 85 85 Respiratory Rate 16 16 Blood Pressure [Le ft Arm] 146/82 H Blood Pressure [Ri ght Upper Arm] Pulse Oximetry 96 Oxygen Delivery Me thod Room Air Results Labs Labs: Abnormal lab results 04/17/25 04/17/25 Range/Units 00:35 01:03 Lymph # (Auto) 3.62 H (0.90-2.90) K/uL ALT 41 H (4-35) U/L Urine Blood 3+ A (Negative) Urine RBC 10-25 A (0-2) Urine Bacteria Few A (None) Diabetes panel 04/17/25 Range/Units 00:35 Sodium 135 (135-149) mmol/L Potassium 3.8 (3.6-5.1) mmol/L Chloride 100 (96-114) mmol/L Carbon Dioxide 26 (20-32) mmol/L BUN 12 (5-24) mg/dL Creatinine 0.8 (0.5-1.5) mg/dL Glucose 112 (60-115) mg/dL Calcium 9.4 (8.4-10.6) mg/dL AST 34 (12-35) U/L ALT 41 H (4-35) U/L Alkaline Phosphatase 68 (40-150) U/L Total Protein 7.8 (6.0-8.3) g/dL Albumin 4.6 (3.3-5.0) g/dL Calcium panel 04/17/25 Range/Units 00:35 Calcium 9.4 (8.4-10.6) mg/dL Albumin 4.6 (3.3-5.0) g/dL Pituitary panel 04/17/25 Range/Units 00:35 Sodium 135 (135-149) mmol/L Potassium 3.8 (3.6-5.1) mmol/L Chloride 100 (96-114) mmol/L Carbon Dioxide 26 (20-32) mmol/L BUN 12 (5-24) mg/dL Creatinine 0.8 (0.5-1.5) mg/dL Glucose 112 (60-115) mg/dL Calcium 9.4 (8.4-10.6) mg/dL Adrenal panel 04/17/25 Range/Units 00:35 Sodium 135 (135-149) mmol/L Potassium 3.8 (3.6-5.1) mmol/L Chloride 100 (96-114) mmol/L Carbon Dioxide 26 (20-32) mmol/L BUN 12 (5-24) mg/dL Creatinine 0.8 (0.5-1.5) mg/dL Glucose 112 (60-115) mg/dL Calcium 9.4 (8.4-10.6) mg/dL Total Bilirubin 0.3 (0.1-1.5) mg/dL AST 34 (12-35) U/L ALT 41 H (4-35) U/L Alkaline Phosphatase 68 (40-150) U/L Total Protein 7.8 (6.0-8.3) g/dL Albumin 4.6 (3.3-5.0) g/dL All other labs normal. Imaging Abdomen CT scan report/results: report reviewed and image reviewed Progress Note:A&P Assessment and plan (1) Acute appendicitis: Status: Acute Assessment and Plan: Patient is a 24-year-old female who presented to the emergency department with a 1 day history of right-sided abdominal pain. Workup was obtained. Labs showed no leukocytosis. A CT scan was obtained which shows an appendix of normal caliber, trace periappendiceal inflammation and mildly prominent mesenteric lymph nodes. I did discuss with the patient that this could represent an early appendicitis versus mesenteric adenitis. I discussed the treatment options with the patient including non-surgical and surgical options. I gave the patient an option for observation of her symptoms given the improvement this morning versus surgery. The risks of surgery were reviewed with the patient including the risks of bleeding, post-operative wound or intra-abdominal infection, injury to abdominal structures and possible conversion to an open operation. We also discussed the possibility of removing a normal appendix. The patient voiced an understanding of our conversation, had the opportunity to ask questions, agreed to accept the risks of surgery and asked that we proceed with surgery. Will plan to take her to the operating room this afternoon for laparoscopic appendectomy. Plan -NPO -IV Zosyn for perioperative antibiotics -OR for laparoscopic appendectomy
--- NOTE | 2025-04-18 14:45 | PC.NURSE ---
End of Shift: Patient pleasant and cooperative. Patient vitally stable, lungs clear, BS, WNL, IV running LR at 150. Patient rates abdominal pain at most 5/10, tylenol and 5mg of oxy given once. Patient is indepedent in room. Patient is NPO for surgery and has had no BM this shift.
[2025-04-18] MEDS: BUPIVACAINE 0.25% 30 ML INJECTION (15:37)
--- NOTE | 2025-04-18 15:56 | SUR.OPER ---
patient consented verbally that she would like to leave her nose ring in place during the procedure. Aware of risks with cautery of it being kept in due to metal. notified and is aware.
--- NOTE | 2025-04-18 17:08 | P.GSOP_ITS ---
Operative Note Date of procedure: 04/18/25 Pre-op diagnosis: Acute appendicitis Post-op diagnosis: Normal appendix, rupture of hemorrhagic cyst Type of Procedure: Diagnostic laparoscopy, laparoscopic appendectomy Indications: Patient is a 24-year-old female who presented with 1 day right-sided abdominal pain. CT scan was obtained in suspicious for an early appendicitis. Different treatment options were reviewed with the patient, please see consultation note for full discussion. After answering all of the patient's questions she did decide to pursue operative intervention. Risks and benefits of operative intervention were discussed at length with the patient. Risks included but was not limited to: Bleeding, infection, risk of damage to surrounding structures, possible need for additional procedures, risk of removing a normal appendix, possible need to convert to an open operation and postoperative complications such as pneumonia, pulmonary emboli or OR. All questions and concerns were addressed with the patient agreeing to proceed. Procedure Description: After discussing the risks and benefits of the procedure, the patient signed informed consent.? The operative site was marked and the patient was brought to the operating room and placed on the operating table in supine position.? Care was taken to pad the patient's pressure points.?? The patient was then intubated by anesthesia.?? The operative site was then prepped and draped in the usual sterile fashion.? A time-out was then performed. Entrance to the abdomen was obtained via a 5 mm optical trocar in the left upper quadrant. The abdomen was insufflated and briefly surveyed for any signs of injury. There were none. A 12 mm port was placed lateral to the umbilicus as well as a 5 mm port in the left lower quadrant under direct vision. The patient was then placed in Trendelenburg position with the right side up. There was a small amount of blood within the pelvis on the right side. The ovary and fallopian tube were identified on the right side. A small amount of blood was coming from the fallopian tube and a small cyst of the ovary was identified. No evidence of active bleeding. Findings were suspicious for rupture of a hemorrhagic cyst. The small bowel was gently moved out of the way and the base of the appendix was identified by following the tinea on the cecum distally to where it splayed out into the base and distal body of the appendix, which was grasped. The base of the appendix was soft and did not appear inflamed. With traction I was unable to completely bring up the body of the appendix, which extended retrocecal and was held in place to the retroperitoneum with several ad hesions. I began dissection by creating a mesenteric window at the base of the appendix, where I could see it clearly entering into the cecum. Prior to transection with a 45 mm Endo-CHIP purple load stapler I did identify the terminal ileum as it entered into the colon, ensuring it was out of the operative field. The base was transected and staple line inspected. The staple line was intact with adequate hemostasis. An additional 5 mm port was placed in the right upper quadrant. I had the automotive brake technician assist with retracting the cecum by an epiploic appendage medially, to allow me to identify the body of the appendix extending retrocecal and caudad. Using the [place] and cautery I dissected free the scar tissue on the anterior aspect of the appendix. The tip of the appendix was then visualized adherent to the edge of the liver. Cautery was used to carefully dissect off the attachments. 5 mm clips were placed in 2 areas, to ensure hemostasis during dissection. Once the tip was freed the body of the appendix was able to be retracted towards the abdominal wall. The mesoappendix was identified and ligated with a 35 mm Endo-CHIP escobar load stapler. The appendix was then removed from the abdomen using an Endo-Catch bag. The specimen was examined on the back table. No evidence of inflammation, no fecalith or mass is identified. Normal appearing appendix. The specimen was th en sent to pathology. Irrigation was used in the right upper quadrant. Hemostasis was assured. The abdomen was briefly surveyed with no other evidence of pathology identified. The 12 mm port site fascia was closed with 0 Vicryl the of the Baldemar Ehsan. All other ports were removed under direct visualization. The skin was then closed with absorbable subcuticular suture. Sterile dressings were then applied. Instrument sponge and needle counts were correct at the end of the case. The patient was then woken and transported to the PACU in stable condition. Findings: Small amount of blood within the pelvis, fallopian tube and ovary identified with findings suspicious for ruptured hemorrhagic cyst, no active bleeding. Normal appendix identified and removed. Anesthesia: GETA Surgeon: Callie Rivas MD Estimated blood loss (mL): 15 Specimen: Appendix Condition: stable Disposition: PACU
--- NOTE | 2025-04-18 17:16 | P.ANES_ITS ---
Anesthesia Charges Start Date/Time Anesthesia Start Date: 04/18/25 Anesthesia Start Time: 15:11 Stop Date/Time Anesthesia Stop Date: 04/18/25 Anesthesia Stop Time: 17:14 Coding CPT Codes CPT Codes: ANESTH SURG LOWER ABDOMEN - 92204 ([id number]) P3 - PATIENT W/SEVERE SYS DISEASE, QZ - BPM DEVELOPER SVC W/O LEAD PERFORMANCE SUPPORT ANALYST BY
--- NOTE | 2025-04-18 17:16 | W.ANESCHARGE ---
Anesthesia Charges Start Date/Time Anesthesia Start Date: 04/18/25 Anesthesia Start Time: 15:11 Stop Date/Time Anesthesia Stop Date: 04/18/25 Anesthesia Stop Time: 17:14 Coding CPT Codes CPT Codes: ANESTH SURG LOWER ABDOMEN - 55528 ([id number]) P3 - PATIENT W/SEVERE SYS DISEASE, QZ - CASINO SURVEILLANCE OFFICER SVC W/O EARLY CHILDHOOD ASSOCIATE BY
[2025-04-18] MEDS: HYDROCODONE-ACETAMIN 5-325 MG 1 TAB PO (18:38)
[2025-04-19] VITALS: BP 116/71; PULSE 65; RESP 18; TEMP 36.9; O2SAT 92
[2025-04-19] MEDS: HYDROCODONE-ACETAMIN 5-325 MG 1 TAB PO ×2 (00:55→08:14)
[2025-04-19 03:11] VITALS: BP 137/75; PULSE 66; RESP 18; TEMP 36.8; O2SAT 91
[2025-04-19] MEDS: LEVOTHYROXINE 125 MCG TABLET PO (05:59)
--- NOTE | 2025-04-19 06:17 | PC.NURSE ---
End of shift [id number]: Pt AxOx3, cooperative, and pleasant with cares. Lap sites remained CDI with scant dried blood surrounding steri strips. LSCTA. SL. Tolerating regular diet and fluids well. Continent of bladder. Pain well managed with PRN medication, active ice, and repositioning. See MAR. Pt denies nausea. Pt resting in bed watching television with mother at bedside. Call light within reach.
[2025-04-19 07:50] VITALS: BP 130/77; PULSE 75; RESP 16; TEMP 36.7; O2SAT 92
[2025-04-19] MEDS: SERTRALINE 50 MG TABLET PO (08:14)
[2025-04-19] MEDS: SERTRALINE 100 MG TABLET PO (08:14)
--- NOTE | 2025-04-19 10:22 | P.DS_ITS ---
DS: Providers Provider Date Seen: 04/19/25 Date of admission: 04/18/25 05:30 Primary care physician: Trent Ch PA-C Admitting Clinician: Anika Parisi MD Consults: 04/18/25 04:32 Consult to [employer] Consultant [CONS] Routine Comment: Reason for Consult:: Social Service Consult Attending Physician on discharge: Callie Rivas MD DS: Summary Hospital Course Hospital Course: Patient presented to the emergency department with right-sided abdominal pain. Workup was obtained and concerning for possible early appendicitis. She was taken to the operating room. A diagnostic laparoscopy was performed which demonstrated a little bit of blood within the pelvis and likely rupture of hemorrhagic cyst. No active bleeding. A normal appendix was identified and removed laparoscopically. Postoperatively patient did well. Vital signs were stable overnight and pain well controlled with oral medication. She was tolerating a regular diet, ambulating independently and voiding without diffic ulty. Time Spent with Patient Time attestation: Total time spent providing and/or coordinating discharge services: Exam Narrative: Exam Narrative: Gen: alert and oriented, NAD Resp: clear breath sounds bilaterally CV: well perfused Abdomen: soft, non distended, appropriately tender over incision sites. Steri strips removed and replaced, no surrounding erythema or induration. Const: Vital Signs, click to edit/add: Vital Signs - 24 hr 04/18/25 11:05 04/18/25 17:11 04/18/25 17:15 Temperature 97.8 F 97.3 F L Pulse Rate Pulse Rate [Pulse Oximeter] 85 120 H 101 H Respiratory Rate 16 10 L 8 L Blood Pressure Blood Pressure [Le ft Arm] 146/82 H 108/58 L 125/78 Pulse Oximetry 96 92 96 Oxygen Delivery Me thod Room Air Room Air Nasal Cannula Oxygen Flow Rate 2 04/18/25 17:20 04/18/25 17:25 04/18/25 17:30 Temperature 97.3 F L Pulse Rate 75 Pulse Rate [Pulse Oximeter] 92 86 Respiratory Rate 8 L 10 L 10 L Blood Pressure 132/73 Blood Pressure [Le ft Arm] 138/82 126/82 Pulse Oximetry 92 95 95 Oxygen Delivery Me thod Nasal Cannula Nasal Cannula Nasal Cannula Oxygen Flow Rate 2 2 6 04/18/25 17:35 04/18/25 17:40 04/18/25 17:45 Temperature 97.3 F L Pulse Rate 82 74 79 Pulse Rate [Pulse Oximeter] Respiratory Rate 12 10 L 10 L Blood Pressure 139/82 134/70 134/70 Blood Pressure [Le ft Arm] Pulse Oximetry 96 95 95 Oxygen Delivery Me thod Nasal Cannula Nasal Cannula Nasal Cannula Oxygen Flow Rate 2 2 2 04/18/25 17:50 04/18/25 18:00 04/18/25 18:15 Temperature Pulse Rate 78 81 78 Pulse Rate [Pulse Oximeter] Respiratory Rate 10 L 16 16 Blood Pressure 124/75 129/71 135/76 Blood Pressure [Le ft Arm] Pulse Oximetry 94 90 92 Oxygen Delivery Me thod Nasal Cannula Oxygen Flow Rate 2 04/18/25 18:30 04/18/25 18:45 04/18/25 19:00 Temperature 98.0 F Pulse Rate 74 74 78 Pulse Rate [Pulse Oximeter] Respiratory Rate 16 16 Blood Pressure 129/78 139/79 134/86 Blood Pressure [Le ft Arm] Pulse Oximetry 91 91 91 Oxygen Delivery Me thod Oxygen Flow Rate 04/18/25 19:30 04/18/25 20:00 04/18/25 21:00 Temperature 98.3 F Pulse Rate 83 73 84 Pulse Rate [Pulse Oximeter] Respiratory Rate 18 Blood Pressure 135/83 124/91 H 136/84 Blood Pressure [Le ft Arm] Pulse Oximetry 92 91 91 Oxygen Delivery Me thod Room Air Oxygen Flow Rate 04/18/25 22:00 04/18/25 23:00 04/19/25 00:00 Temperature 98.2 F 98.4 F Pulse Rate 86 77 65 Pulse Rate [Pulse Oximeter] Respiratory Rate 18 18 18 Blood Pressure 150/85 H 149/77 H 116/71 Blood Pressure [Le ft Arm] Pulse Oximetry 91 92 92 Oxygen Delivery Me thod Room Air Room Air Room Air Oxygen Flow Rate 04/19/25 03:11 04/19/25 07:50 Temperature 98.3 F 98.1 F Pulse Rate Pulse Rate [Pulse Oximeter] 66 75 Respiratory Rate 18 16 Blood Pressure Blood Pressure [Le ft Arm] 137/75 130/77 Pulse Oximetry 91 92 Oxygen Delivery Me thod Room Air Room Air Oxygen Flow Rate DS: Data Data Completed and Pending Labs on day of discharge: Preliminary micro results at discharge 04/17/25 01:03 Urine Culture - Preliminary Urine,Clean Catch Culture in Progress Discharge Plan Discharge Disposition: Home, Self-Care Date of Admission: 04/18/25 05:30 Attending Provider on Discharge: Callie Rivas Primary Care Provider: Trent Ch Condition: Stable Anticipated Discharge Date/Time: 04/19/25 10:19 Discharge Medications: New hydrocodone-acetaminophen 5-325 mg tablet 1 tab PO Q6H PRN (Reason: pain) Qty: 15 0RF senna 8.6 mg capsule 8.6 mg PO DAILY PRN (Reason: constipation) Qty: 90 0RF Continued sumatriptan succinate 25 mg tablet See Rx Instructions PO .COMPLEX Qty: 14 0RF Rx Instructions: take 1 tab at onset of headache; if no relief may repeat 1 tab after at least 2 hrs; max = 4 tabs/24 hr PO multivitamin [Daily Multi-Vitamin] Tablet 1 tab PO QAM sertraline 100 mg tablet 100 mg PO DAILY Qty: 90 3RF sertraline 50 mg tablet 50 mg PO QDAY Qty: 90 3RF dextroamphetamine-amphetamine [Adderall XR] 20 mg capsule,extended release 24hr 20 mg PO QAM Qty: 30 0RF albuterol sulfate [Ventolin HFA] 90 mcg/actuation HFA aerosol inhaler 2 puff inhalation Q4-6H PRN (Reason: shortness of breath or wheezing) Qty: 8 0RF clonidine HCl 0.1 mg tablet See Rx Instructions .ROUTE .COMPLEX Qty: 90 3RF Dose Instruction: TAKE ONE TABLET BY MOUTH AT BEDTIME . Rx Instructions: TAKE ONE TABLET BY MOUTH AT BEDTIME . levothyroxine 125 mcg tablet 125 mcg PO QDAY Qty: 90 0RF levonorgestrel-ethinyl estrad 0.15-0.03 mg tablet 1 tab PO DAILY Qty: 84 2RF Discharge Orders: Discharge Order (Routine); Ordered 04/19/25 Ordered By: Callie Rivas Consulting provider completed their portion of the discharge: Yes Patient Education: Hydrocodone/Acetaminophen (By mouth), Senna (By mouth), Laparoscopic Appendectomy (DC) Additional Instructions: You were prescribed a narcotic pain medication. In addition you may supplement with Tylenol and/or ibuprofen. Be sure to not exceed greater than 4 g of Tylenol in a 24 hour period. While on narcotic pain medicine please take stool softeners. A prescription of stool softeners has been sent to the pharmacy. Stop if having greater than 2 stools per day. You have Steri-Strips dressings in place, allow these to fall off on their own. Okay to shower starting tomorrow. Do not soak in a bath or swim for 2 weeks. Follow-up with Dr. Rivas in 2-3 weeks. Please call if you are experiencing severe pain, nausea, vomiting, difficulty urinating, fever or not had a bowel movement in 4 days after surgery. For after hour emergencies call [phone] to talk to a nurse or the three dimensional map modeler surgeon. Clinic hours M-Fr you can reach the General Surgery nurse at [phone]. Activity Level: No strenuous activity Activity Detail: Activity as tolerated. Avoid strenuous activity. No lifting greater than 20 lb for 2 weeks. Discharge Diet: Regular Follow Up Appointments: Marisela Shaffer MD [Staff Physician, General Surgery] - 05/07/25 9:00 am Referral Note: [facility] for follow up Trent Ch PA-C [Primary Care Provider, Family Practice] Forms: [facility] Info Instructions
--- NOTE | 2025-04-19 10:56 | RESP.RT ---
Patient has home CPAP, did not bring it, reported she slept fine last night with HOB up slightly, no Oxygen required.
--- NOTE | 2025-04-19 11:24 | PC.NURSE ---
Pt is pleasant to care for. VSS. Pain controlled well with PRN medication and ice. Pt tolerating oral intake, voiding well. Ambulating in room independently. Surgical sites are clean, dry and intact. Pt belongings and discharge instructions signed, no further questions or concerns at this time. Pt discharged home via mother at 1100.
--- NOTE | 2025-04-21 15:14 | PM.EN ---
Chart Event Note Chart Event Note: Received a positive urine culture after patient's discharge; 20-30K CFUs of ESBL E coli. Called patient; she is doing well and has no urinary symptoms. She will have routine follow-up with her PCP, will not initiate antibiotics at this time.
== END 2025-04-19 11:00 | disposition home or self-care (01) ==
LOC: ED 04-18 00:58 → SS 04-18 03:27 → MEDSURG 04-18 03:28
PROVIDERS: Emergency Provider Family Medicine; PCP Physician Assistant Medical; Visit Provider Surgery
PROC: 0DTJ4ZZ Resection of Appendix, Percutaneous Endoscopic Approach (ICD-10-PCS; CPT 44970; principal; 2025-04-18 15:00)
DX: R10.31 Right lower quadrant pain (principal); N83.291 Other ovarian cyst, right side; K76.0 Fatty (change of) liver, not elsewhere classified; G47.33 Obstructive sleep apnea (adult) (pediatric); E66.01 Morbid (severe) obesity due to excess calories; Z68.42 Body mass index [BMI] 45.0-49.9, adult; E03.9 Hypothyroidism, unspecified; Z91.89 Other specified personal risk factors, not elsewhere classified
CPT/HCPCS: 44970; 00840; 36415; 74177; 80048; 80076; 81001; 81025; 82150; 83690; 84145; 85025; 87086; 88304; 99284; 99285; A9270; J0330; J0665; J1100; J1171; J1885; J2250; J2405; J2543; J2704; J2710; J3010; J3490; J7030; J7120; Q9967

== ENCOUNTER 2025-04-26 11:05 | Outpatient (CLI) | payer BC, SELFPAY | END 2025-04-26 11:06 | disposition home or self-care (01) | LOC: LKVREF 11:05 | PROVIDERS: PCP Physician Assistant Medical; Visit Provider Family Medicine | DX: N39.0 Urinary tract infection, site not specified (principal) | CPT/HCPCS: 87086 ==

== ENCOUNTER 2025-05-16 20:21 | Emergency (ER) | payer BC, SELFPAY ==
--- OUTSIDE RECORDS SUMMARY | 2022-05-12 22:30 | XMS_ITS | Continuity of Care Document ---
Author Organization [facility] Address [address] [address] [place] [address] Phone Care Team Providers Care Pneumatic Tester Name Role Phone No Information Unavailable Unavailable Allergies, Adverse Reactions, Alerts Substance Reaction Status Criticality MILK BASED FORMULAS Abdominal bloatingAbdominal pain A ctive No Information azithromycin NauseaVomiting Active No Informatio n Medications Medication Instructions Dosage Effective Dates (start - stop) Status Comments dicyclomine 20 mg tablet take 1 Tablet by oral route 2 times every day before meals 20 MG - Active Office visit needed for further refills Claritin-D 24 Hour 10 mg-240 mg tablet,extended release take 1 tablet by oral route every day as needed 1 tablet - Active Multivitamin unknown Oral - Active diphenoxylate-atrop ine 2.5 mg-0.025 mg tablet take 1 Tablet by oral route every day as needed 2.5 MG - Active LACTAID (unknown strength) take 2 Tablet by Oral route every day Not Available - Active Zoloft 50 mg tablet take 1 tablet by ORAL route every day 50 MG - Active Xanax 0.25 mg tablet take 1 tablet by oral route every day as needed 0.25 MG - Active levothyroxine 75 mcg capsule take 1 by Oral route every day 1 - Active Adderall 20 mg tablet take 1 tablet by oral route every day before breakfast 20 MG - Active melatonin 5 mg tablet take 1 by Oral route every bedtime 1 - Active clonidine HCl 0.1 mg tablet take 1 tablet by oral route 2 times every day 0.1 MG - Active Control Pill ORAL TABLET Take one tablet by mouth daily - Active Procedures Procedure Date Medical nutrition therapy, initial, each 15 minutes Established Level 3 Colonoscopy Flex; W/bx 1/mx Level Iv-surg Path Gross/micro 21 New Level 4 Advance Directives Directive Yes / No Effective Date File Name No Information Encounters Encounter Description Practice Location Reason(s) For Visit Diagnoses Date Provider Providers Copied on Encounter [facility], [address] [address], [place], [id number], [place] tel:[phone] No Information 2 No Information [facility], [address] [address], [place], [id number], [place] tel:[phone] [facility] No Information 2 Luís Bishop. [address] [place] [address], [facility] [address], [place], [place], [id number], [place]. tel:[phone] [facility], [address] [address], [place], [id number], [place] tel:[phone] [facility] GI Symptoms or Concerns (chief complaint) Fatty liverIrritable bowel syndrome with diarrheaObesit y (BMI 30.0-34.9)Diet rosemary surveillance and counseling 1 No Information Referring Provider: Referral Self, USE FOR SELF REFERRALS. Established Level 3 [facility], [address] [address], [place], [id number], [place] tel:[phone] [facility] GI Symptoms or Concerns (chief complaint) Irritable bowel syndrome with diarrhea 1 Luís Bishop. [address] [place] [address], [address], [place], [place], [id number], [place]. tel:[phone] Referring Provider: Referral Self, USE FOR SELF REFERRALS. [facility], [address] [address], [place], [id number], [place] tel:[phone] [facility] No Information 1 Luís Bishop. [address] [facility], [facility] [address], [place], [id number], [place]. tel:[phone] [facility], [address] [address], [place], [id number], [place] tel:[phone] [facility] Hemorrhoids, internalDiarrh ea, unspecifiedHem orrhage of anus and rectumOther hemorrhoids 1 Luís Bishop. [address] [facility], [address], [id number], [place]. tel:[phone] Referring Provider: Referral Self, USE FOR SELF REFERRALS. [facility], [address] [address], [place], [id number], [place] tel:[phone] [facility] No Information 1 Robert Rodas. [address] [facility], [facility] [address], [place], [id number], [place]. tel:[phone] New Level 4 [facility], [address] [address], [place], [id number], [place] tel:[phone] [facility] GI Symptoms or Concerns (chief complaint) Diarrhea, unspecified typeRectal bleedingFatty liverObesity (BMI 30.0-34.9) 1 Luís Bishop. [address] [facility], [facility] [address], [place], [id number], [place]. tel:[phone] [facility], [address] [address], [place], [id number], [place] tel:[phone] [facility] No Information 1 Robert Rodas. [address] [facility], [facility] [address], [place], [id number], [place]. tel:[phone] Family History Family Member Type Diagnosis Age At Onset Mother Problem (finding) asthma Mother Problem (finding) Thyroid disorder Father Problem (finding) alcoholism Mother Problem (finding) Cirrhosis Immunizations Vaccine Date Status Comments tetanus and diphtheria toxoi ds, adsorbed, preservative free, for adult use (2 Lf of tetanus toxoid and 2 Lf of diphtheria toxoid) administered Note: MII C bi- directional interface ; Source: Other Registry SARS-COV-2 (COVID-19) vaccin e, mRNA, spike protein, LNP, preservative free, 100 mcg/0.5mL dose administered Note: [facility] bi-direct ional interface ; Source: Other Registry SARS-COV-2 (COVID-19) vaccin e, mRNA, spike protein, LNP, preservative free, 100 mcg/0.5mL dose administered Note: [facility] bi-direct ional interface ; Source: Other Registry Afluria Qd administered Note: M [facility] bi-directional interface ; Source: Other Registry Afluria Qd administered Note: [facility] bi-directional interface ; Source: Other Registry Afluria Qd administered Note: [facility] bi-directional interface ; Source: Other Registry Afluria Qd administered Note: [facility] bi-directional interface ; Source: Other Registry Afluria Qd administered Note: [facility] bi-directional interface ; Source: Other Registry Afluria Qd administered Note: [facility] bi-directional interface ; Source: Other Registry Afluria Qd administered Note: [facility] bi-directional interface ; Source: Other Registry Afluria Qd administered Note: [facility] bi-directional interface ; Source: Other Registry meningococcal oligosaccharid e (groups A, C, Y and W-135) diphtheria toxoid conjugate vaccine (MCV4O) administered Note: [facility] bi-direct ional interface ; Source: Other Registry human papilloma virus vaccin e, quadrivalent administered Note: [facility] bi-direct ional interface ; Source: Other Registry Havrix pediatric administered Note: [facility] bi-directional interface ; Source: Other Registry human papilloma virus vaccin e, quadrivalent administered Note: [facility] bi-direct ional interface ; Source: Other Registry Afluria Qd administered Note: M [facility] bi-directional interface ; Source: Other Registry Afluria Qd administered Note: M [facility] bi-directional interface ; Source: Other Registry meningococcal polysaccharide (groups A, C, Y and W-135) diphtheria toxoid conjugate vaccine (MCV4P) administered Note: [facility] bi-direct ional interface ; Source: Other Registry human papilloma virus vaccin e, quadrivalent administered Note: [facility] bi-direct ional interface ; Source: Other Registry Havrix pediatric administered Note: [facility] bi-directional interface ; Source: Other Registry tetanus toxoid, reduced diphtheria toxoid, and acellular pertussis vaccine, adsorbed administered Note: [facility] b i-directional interface ; Source: Other Registry influenza virus vaccine, unspecified formulation administered Note: [facility] bi-di rectional interface ; Source: Other Registry influenza virus vaccine, unspecified formulation administered Note: [facility] bi-di rectional interface ; Source: Other Registry varicella virus vaccine administered Note : [facility] bi-directional interface ; Source: Other Registry influenza virus vaccine, unspecified formulation administered Note: [facility] bi-di rectional interface ; Source: Other Registry poliovirus vaccine, inactivated administe red Note: [facility] bi- directional interface ; Source: Other Registry measles, mumps and rubella v irus vaccine administered Note: [facility] bi-direct ional interface ; Source: Other Registry diphtheria, tetanus toxoids and acellular pertussis vaccine administered Note: [facility] b i-directional interface ; Source: Other Registry varicella virus vaccine administered Note : [facility] bi-directional interface ; Source: Other Registry diphtheria, tetanus toxoids and acellular pertussis vaccine administered Note: [facility] b i-directional interface ; Source: Other Registry measles, mumps and rubella v irus vaccine administered Note: [facility] bi-direct ional interface ; Source: Other Registry poliovirus vaccine, inactivated administe red Note: [facility] bi- directional interface ; Source: Other Registry Haemophilus influenzae type b vaccine, conjugate unspecified formulation administered Note: [facility] bi-direct ional interface ; Source: Other Registry Engerix-B administered Note: [facility] bi-d irectional interface ; Source: Other Registry Haemophilus influenzae type b vaccine, conjugate unspecified formulation administered Note: [facility] bi-direct ional interface ; Source: Other Registry diphtheria, tetanus toxoids and acellular pertussis vaccine administered Note: [facility] b i-directional interface ; Source: Other Registry poliovirus vaccine, inactivated administe red Note: [facility] bi- directional interface ; Source: Other Registry Haemophilus influenzae type b vaccine, conjugate unspecified formulation administered Note: [facility] bi-direct ional interface ; Source: Other Registry diphtheria, tetanus toxoids and acellular pertussis vaccine administered Note: [facility] b i-directional interface ; Source: Other Registry poliovirus vaccine, inactivated administe red Note: [facility] bi- directional interface ; Source: Other Registry Haemophilus influenzae type b vaccine, conjugate unspecified formulation administered Note: [facility] bi-direct ional interface ; Source: Other Registry diphtheria, tetanus toxoids and acellular pertussis vaccine administered Note: [facility] b i-directional interface ; Source: Other Registry Engerix-B administered Note: [facility] bi-d irectional interface ; Source: Other Registry Energix Pediatric administered Note: [facility] bi-directional interface ; Source: Other Registry Payers Payer name Insurance type Covered constitution party ID Authoriza tion(s) No Information Social History Type Description Quantity Date Captured Comments Sex Female Smoking Status No Information Chief Complaint And Reason For Visit No Information Reason For Referral Reason For Referral No Information Plan Of Treatment Date Type Action Status Referral Ordered: Colonoscopy Appointment date/timeframe: 03/16/2021 ordered History Of Present Illness Encounter Date Complaint History Of Prese nt Illness GI Symptoms or Concerns NEW RD V ISITAnthropometric Data Patient reports that she's been trying intentionally trying to lose weight. Food & Exercise HistoryPatient reports bloating, diarrhea, and gas daily. She notices that dairy, spicy foods, and fatty foods exacerbate her GI symptoms. She snacks on fruits, popcorn, chips, etc. She drinks ~64 ounces of water daily. She's been trying to reduce her dairy and sweets intake. B - bagel with cream cheese or Scottish muffin with peanut butter or overnight oatsL - Subway or leftoversD - meat, grain, and vegetablePatient reports exercising 3 - 4 times weekly.Nutrition DiagnosisFood- and nutrition-related knowledge deficit RT food/nutrition recommendations for elevated LFTs AEB patient self-report.Nutrition Discussion & Education Patient was educated on food/nutrition recommendations for elevated LFTs. We discussed overall eating, exercise, and lifestyle patterns. We discussed healthier fat, protein, and carbohydrate choices. We specifically focused on being mindful with carbohydrate intake and the importance of eating it with protein. Patient was encouraged to ensure consistent, balanced meal/snack intake. We identified what this would specifically look like for the patient. They were encouraged to ensure adequate fluid intake and to decrease sugary beverages if indicated. Physical activity/movement was encouraged, as tolerated, as well. Patient's questions were answered and they'll reach out if questions arise. GI Symptoms or Concerns This was a virtual visit with the patient. She consented to have this visit virtually. The people present were the patient and myself. Total of 15 minutes was spent on medical discussion, in which 5 minutes was used to review her [facility] chart, dictate her note, and send a refill of medication to her pharmacy.Ms. Hernandez is a pleasant 20-year-old female who is here today for a followup visit regarding irritable bowel syndrome that is diarrhea predominant. We did do a colonoscopy on March 16, 2021, for her symptoms of diarrhea. This showed small internal hemorrhoids, the entire colon was normal, 10 cm of the TI was visualized and that was normal. Random colon biopsies were taken and those came back normal. At that time, I asked her to start Bentyl 20 mg twice a day and she returns today reporting that her diarrhea has resolved on the Bentyl. She still has some bloating, but that has also improved. She has noted that some trigger foods will cause an upset stomach and diarrh GI Symptoms or Concerns This was a return visit with the patient. She consented to have this visit virtually. The people present were the patient and myself. A total of 27 minutes was spent on medical discussion of which 10 minutes was used to review her primary care doctor clinic notes, outside CT scan done by a separate radiology group, dictating her note, ordering of followup with me, the dietitian, and scheduling a colonoscopy.Mrs. Hernandez is a pleasant 20-year-old female with a past medical history significant for anxiety, depression, obesity, and hypothyroid. She is here today for a consultation visit from her primary care, Dr. Chintan Piper, for diarrhea, rectal bleeding, and rectal pain. The patient reports that prior to October, she had some GI upset symptoms, but then in October itself, she started to have some significant issues with diarrhea, where she was having 8 to 9 liquid bowel movements per day. She also started to notice some blood on the toilet paper. She was given Imodium and it Functional Status Date Functional Assessmen t No Information Instructions Date Instruction Additional Infor bud 1. Work on increasin g fiber intake to 25 - 35 grams/day. 2. Increase water intake to 75+ ounces/day. 3. Continue with consistent PO intake. Do not skip meals. 4. Make sure having protein every meal/snack. Related to Irritable bowel syndrome with diarrhea Assessments Type Assessment Date No Information Patient Care Teams Name Effective Dates (start - stop) Status Members No Information
--- OUTSIDE RECORDS SUMMARY | 2022-05-12 22:30 | XMS_ITS | Continuity of Care Document ---
Author Organization [facility] Address [address] [address] [place] [address] Phone Care Team Providers Care Director Of Employee Development Name Role Phone No Information Unavailable Unavailable [...] Encounter [facility], [address] [address], [place], [id number], [place] tel:[phone] No Information 2 No Information [facility], [address] [address], [place], [id number], [place] tel:[phone] [facility] No Information 2 Luís Bishop. [address] [place] [address], [facility] [address], [place], [place], [id number], [place]. tel:[phone] [facility], [address] [address], [place], [id number], [place] tel:[phone] [facility] GI Symptoms or Concerns (chief complaint) Fatty liverIrritable bowel syndrome with diarrheaObesit y (BMI 30.0-34.9)Diet rosemary surveillance and counseling 1 No Information Referring Provider: Referral Self, USE FOR SELF REFERRALS. Established Level 3 [facility], [address] [address], [place], [id number], [place] tel:[phone] [facility] GI Symptoms or Concerns (chief complaint) Irritable bowel syndrome with diarrhea 1 Luís Bishop. [address] [place] [address], [address], [place], [place], [id number], [place]. tel:[phone] Referring Provider: Referral Self, USE FOR SELF REFERRALS. [facility], [address] [address], [place], [id number], [place] tel:[phone] [facility] No Information 1 Luís Bishop. [address] [facility], [facility] [address], [place], [id number], [place]. tel:[phone] [facility], [address] [address], [place], [id number], [place] tel:[phone] [facility] Hemorrhoids, internalDiarrh ea, unspecifiedHem orrhage of anus and rectumOther hemorrhoids 1 Luís Bishop. [address] [facility], [address], [id number], [place]. tel:[phone] Referring Provider: Referral Self, USE FOR SELF REFERRALS. [facility], [address] [address], [place], [id number], [place] tel:[phone] [facility] No Information 1 Robert Rodas. [address] [facility], [facility] [address], [place], [id number], [place]. tel:[phone] New Level 4 [facility], [address] [address], [place], [id number], [place] tel:[phone] [facility] GI Symptoms or Concerns (chief complaint) Diarrhea, unspecified typeRectal bleedingFatty liverObesity (BMI 30.0-34.9) 1 Luís Bishop. [address] [facility], [facility] [address], [place], [id number], [place]. tel:[phone] [facility], [address] [address], [place], [id number], [place] tel:[phone] [facility] No Information 1 Robert Rodas. [address] [facility], [facility] [address], [place], [id number], [place]. tel:[phone] Family History Family Member Type Diagnosis Age [...] B - bagel with cream cheese or Nauruan muffin with peanut butter or overnight oatsL [...] 5 minutes was used to review her [facility] chart, dictate her note, and send a [...]
--- OUTSIDE RECORDS SUMMARY | 2025-05-16 20:24 | XMS_ITS | Clinical Summary ---
Author Organization [employer] Address [address] [place] [id number] Care Team Providers Care Electronic Funds Transfer Coordinator Name Role Phone Trent Ch PA-C Primary Care Provider Allergies Active Allergy Reactions Criticality Noted Date [...] Active Active Problems No known active problems Encounters Date Type Department Care Team Description 04/21/2025 Lab Requisition [facility] [phone] Callie Rivas MD from Last 3 Months Family History Relation Name Status Comments Father [...] Comments Blood Pressure 114/77 05/20/2023 12:06 PM METAL MOLDER Pulse 84 05/20/2023 12:06 PM METAL MOLDER Temperature 36.4 C (97.5 F) 05/20/2023 12:06 PM METAL MOLDER Respiratory Rate 20 05/20/2023 12:06 PM METAL MOLDER Oxygen Saturation 97% 05/20/2023 12:06 PM METAL MOLDER Inhaled Oxygen Concentration - - Weight 108.9 kg (240 lb) 05/20/2023 12:06 PM METAL MOLDER Height 157.5 cm (5' 2) 05/20/2023 12:06 PM METAL MOLDER Body Mass Index 43.9 05/20/2023 12:06 PM METAL MOLDER Plan of Treatment Health Maintenance Due Date [...] same day) for age 18+ 05/14/2024 05/14/2023 Influenza Vaccine (#1) 2025 RSV vaccine for adults or (1 - 1-dose 75+ series) 2073 Pneumococcal series for age 6-49 Aged Out No longer eligible based on patient's age to complete this topic Procedures Procedure Name Priority Date/Time Associated Diagnosis Comments LAB TRACKING EVENT Routine 04/18/2025 4: 33 PM CDT PATH TISSUE EXAM Routine 04/18/2025 4:33 PM CDT from Last 3 Months Results * LAB TRACKING EVENT (04/18/2025 4:33 PM CDT) Other (Other) Client Collect / Unknown 04/18/2025 4:33 PM CDT 04/21/2025 1:52 PM CDT us Callie Rivas MD LAB BILL ONLY [facility] [address] [place] [address], [place] * PATH TISSUE EXAM (04/18/2025 4:33 PM CDT) Case Report Pathology Report Case: [id number] Authorizing Provider: Callie Rivas MD Collected: 04/18/2025 1632 Ordering Location: [facility] Received: 04/21/2025 1542 Pathologist: Louie Hampton MD Specimen: Appendix 04/23/2025 10:[address] [facility] Final Diagnosis A) APPENDIX, APPENDECTOMY: 1. Appendix with no diagnostic abnormalities 2. Fibrous obliteration of lumen is present 3. Negative for abnormal inflammation and neoplasm 04/23/2025 10:[address] [facility] at 1051 CDT Clinical Information Ms. Hernandez is a 24 year-old who undergoes appendectomy. 04/23/2025 10:51 AM CDT [facility] Gross Description A) Received in formalin, labeled with the patient's name and Appendix, is a 8.5 cm long appendix with an average diameter of 0.5 cm, with attached mesoappendix. The serosa is escobar-brown and ragged. The serosa is partially stripped away at the distal tip. The wall averages 0.2 cm. The mucosa is escobar-brown and smooth. A discrete mass, fecalith or perforation is not identified. Rotating Equipment Engineer sections including the en face margin (inked black) are submitted in one cassette. VRS 04/21/2025 04/23/2025 10:51 AM CDT [facility] Microscopic Description The final diagnosis is based on microscopic examination of appropriate sections of all specimens. 04/23/2025 10:51 AM CDT [facility] Additional Information Interpreted at [facility] - [address], [place] [address] 04/23/2025 10:51 AM CDT [facility] Other APPENDIX SPECIMEN / Unknown 04/18/2025 4:33 PM CDT 04/21/2025 3:42 PM CDT us Callie Rivas MD PATHOLOGY/CYTOLOGY Final Result [facility] [address] [place] [address], [place] from Last 3 Months Insurance [place] [id number] [place] [id number] Care Teams Electronic Funds Transfer Coordinator Relationship Specialty Start Date End Date Trent Ch PA-C [address] [place] [id number] PCP - General Physician Ict Trainer 05/20/23
--- OUTSIDE RECORDS SUMMARY | 2025-05-16 20:24 | XMS_ITS | Clinical Summary ---
Author Organization [facility] Address [address], [place] [address] Care Team Providers Care Spoon Maker Name Role Phone Narendra Piper MD Primary Care Provider + Source Comments You are receiving this document as you are listed as the primary care provider,follow-up provider, or the patient has been referred to you for consultation.This is in compliance with the Medicare andThe [facility] Hospital[facility] EHR Incentive Program,which states Providers who transition their patient to another setting of careor provider of care or refers their patient to another provider of care shouldprovide summary care record for each transition of care or referral. 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
[2025-05-16 20:39] VITALS: BP 129/67; PULSE 92; RESP 18; TEMP 36.5; O2SAT 98; BMI 48.9
--- NOTE | 2025-05-16 20:54 | ED.NECK ---
HPI - Neck Pain/Injury General Time Seen by Provider: 20:54 Date Seen: 05/16/25 Chief Complaint: Neck Injury/Pain Stated Complaint: Fever, Swollen Lymph nodes Time Seen by Provider: 05/16/25 20:54 Source: patient Mode of arrival: ambulatory Limitations: no limitations History of Present Illness HPI Narrative: 24-year-old female who presents today with neck pain and fever. Patient started having upper respiratory symptoms last week, a lot of fatigue last weekend with cough, runny nose, body aches. Patient started getting better and then developed worsening fever, body aches, and swollen lymph nodes in the back of the neck as well as runny nose in the last couple of days. No shortness of breath, no diarrhea, did vomit. Temperature 101.5? at home. Related Data Home Medications ?Medication ?Instructions ?Recorded ?Confirmed multivitamin (Daily Multi-Vitamin 1 tab PO QAM 09/13/22 04/26/25 tablet) Previous Rx's ?Medication ?Instructions ?Recorded clonidine HCl 0.1 mg tablet See Rx Instructions .Route 06/18/24 .COMPLEX #90 tabs dextroamphetamine-amphetamine ER 20 mg PO QAM #30 caps 08/01/24 20 mg 24hr capsule,extend release (Adderall XR) sertraline 100 mg tablet 100 mg PO DAILY #90 tabs 08/01/24 sertraline 50 mg tablet 50 mg PO QDAY #90 tabs 08/01/24 levothyroxine 125 mcg tablet 125 mcg PO QDAY #90 tabs 08/05/24 sumatriptan succinate 25 mg tablet See Rx Instructions PO .COMPLEX 10/14/24 #14 tabs levonorgestrel 0.15 mg-ethinyl 1 tab PO DAILY #84 tabs 11/11/24 estradiol 0.03 mg tablet Ventolin HFA 90 mcg/actuation 2 puff inhalation Q4-6H PRN 03/17/25 aerosol inhaler (albuterol sulfate) shortness of breath or wheezing #8 grams sennosides 8.6 mg capsule (senna) 8.6 mg PO DAILY PRN constipation 04/18/25 #90 caps Allergies Allergy/AdvReac Type Severity Reaction Status Date / Time plum Allergy Intermediate Swelling Verified 05/07/25 09:00 of Lip/Tongue/Throat azithromycin AdvReac Mild Nausea and Verified 05/07/25 09:00 diarrhea apples Allergy Severe breathing Uncoded 05/07/25 09:00 difficulties, mouth swelling dairy AdvReac Intermediate Diarrhea Uncoded 05/07/25 09:00 [facility] Medical History (Updated 05/16/25 @ 22:00 by Kostas Qiu MD) UTI (urinary tract infection) ?N39.0 - Urinary tract infection, site not specified (ICD-10) Bronchitis ?J40 - Bronchitis, not specified as acute or chronic (ICD-10) Sinusitis ?J32.9 - Chronic sinusitis, unspecified (ICD-10) Surgical History (Updated 05/07/25 @ 09:13 by Sera Ibarra MD) S/P laparoscopic appendectomy ?Z90.49 - Acquired absence of other specified parts of digestive tract (ICD-10) History of placement of ear tubes (06/22/07) ?Z96.22 - Myringotomy tube(s) status (ICD-10) History of adenoidectomy (06/22/07) ?Z90.89 - Acquired absence of other organs (ICD-10) Family History Brother Anxiety disorder Mother Hypothyroidism Biliary disease Social History Narrative: Does not drink alcohol Does not use illicit drugs Non-smoker What is your current living situation?: I presently have a place to live Problems where you live: no known problems In the past 12 months, utilities in danger of being shut off: no In past 12 months, lack of transportation kept you from medical appts, meetings, work, or getting things needed for daily living: no In the past 12 mos, have been you worried that your food would run out before you had money to buy more?: never true In the past 12 mos, the food you bought just didn't last and you didn't have money to buy more?: never true Smoking Status: Never smoker Do you use any of these nicotine containing products: None Second hand tobacco smoke exposure: No How often do you have a drink containing alcohol: 2-4 times a month How often do you have six or more drinks on one occasion: Never AUDIT-C Alcohol total score: 2 Non-prescribed substance use: denies use Non-prescribed substance use details: THC gummies How often does anyone, including family, friends and others, physically hurt you: never How often does anyone, including family, friends and others, insult or talk down to you: sometimes How often does anyone, including family, friends and others, threaten you with harm: never How often does anyone, including family, friends and others, scream or curse at you: sometimes service: No Health Related Social Needs: Other personal risk factors, not elsewhere classified (Z91.89) Exam Narrative: Exam Narrative: General: Well-developed and well-nourished, no acute distress Head: Atraumatic and normocephalic Eyes: Pupils are equal reactive, extraocular motions intact, conjunctiva clear ENT: External nose and ears are normal, posterior pharynx without erythema or exudate Neck: No midline cervical tenderness, full spontaneous range of motion the neck, trachea midline, tender small lymph nodes of the posterior occipital area Heart: Regular rate and rhythm no murmurs or thrills Lungs: Clear to auscultation bilaterally without wheezes or crackles Abdomen: Soft, nontender, nondistended with active bowel sounds Musculoskeletal: No tenderness, deformity, or edema Neurologic: Awake, alert, and oriented x3, no gross focal neurologic deficits, cranial nerves intact as tested Psych: Mood and affect are appropriate Skin: No rashes Const: Vital Signs, click to edit/add: Vital Signs - 24 hr 05/16/25 20:39 Temperature 97.7 F Pulse Rate [Left P ulse Oximeter] 92 Respiratory Rate 18 Blood Pressure [Ri ght Upper Arm] 129/67 Pulse Oximetry 98 Oxygen Delivery Me thod Room Air Course Course ED Course: Additional records reviewed: Prior emergency department visit from March 2025 when patient abdominal pain, diagnosis acute appendicitis. Also reviewed prior emergency department visit from March 17 when patient was seen with neck and back pain Additional history from: Care impacted by: Mental health Testing considered but not performed: See ED course Patient seen and examined, had upper respiratory infection symptoms last week that the improved but not completely clear then got abruptly worse in the last day. She has pain in the back of the neck, has some tender enlarged lymph nodes but no nuchal rigidity, no headache or altered mentation to suggest meningitis or encephalitis. Lungs are clear, no anterior cervical adenopathy, no abdominal tenderness. Suspect upper respiratory infection or other viral process, chest x-ray ordered to evaluate for post viral pneumonia given abrupt worsening symptoms. Labs in the bili interpreted by me with negative strep test, consider COVID influenza testing but this would not significantly change clinical course disposition and therefore will defer. Vital Signs Vital signs: Initial Vital Signs Temperature 97.7 F 05/16/25 20:39 Temperature Source Temporal Artery Scan 05/16/25 20:39 Pulse Rate 92 05/16/25 20:39 Pulse Rhythm Regular 05/16/25 20:39 Respiratory Rate 18 05/16/25 20:39 Blood Pressure 129/67 05/16/25 20:39 Blood Pressure Mean 87 05/16/25 20:39 Blood Pressure Position Sitting 05/16/25 20:39 Pulse Oximetry 98 05/16/25 20:39 Oxygen Delivery Method Room Air 05/16/25 20:39 Vital Signs Temperature 97.7 F 05/16/25 20:39 Pulse Rate 92 05/16/25 20:39 Respiratory Rate 18 05/16/25 20:39 Blood Pressure 129/67 05/16/25 20:39 Pulse Oximetry 98 05/16/25 20:39 Oxygen Delivery Method Room Air 05/16/25 20:39 Temperature 97.7 F 05/16/25 20:39 Pulse Rate 92 05/16/25 20:39 Respiratory Rate 18 05/16/25 20:39 Blood Pressure 129/67 05/16/25 20:39 Pulse Oximetry 98 05/16/25 20:39 Oxygen Delivery Method Room Air 05/16/25 20:39 MDM - Neck Pain/Injury Lab Data Labs: Lab Results 05/16/25 Range/Units 20:45 Group A Strep DNA NOT DETECTED (Not Detectd) Discharge Plan Discharge Clinical Impression: Acute viral syndrome, Posterior cervical adenopathy Patient Disposition: Home, Self-Care Condition: Stable Instructions: Lymphadenopathy (ED), Viral Syndrome (ED) Additional Instructions: Take Tylenol ibuprofen as needed for pain Lots of fluids and rest Activity Level: Activity as Tolerated Discharge Diet: Regular Prescriptions: No Action sumatriptan succinate 25 mg tablet See Rx Instructions PO .COMPLEX Qty: 14 0RF Rx Instructions: take 1 tab at onset of headache; if no relief may repeat 1 tab after at least 2 hrs; max = 4 tabs/24 hr PO multivitamin [Daily Multi-Vitamin] Tablet 1 tab PO QAM sertraline 100 mg tablet 100 mg PO DAILY Qty: 90 3RF sertraline 50 mg tablet 50 mg PO QDAY Qty: 90 3RF dextroamphetamine-amphetamine [Adderall XR] 20 mg capsule,extended release 24hr 20 mg PO QAM Qty: 30 0RF albuterol sulfate [Ventolin HFA] 90 mcg/actuation HFA aerosol inhaler 2 puff inhalation Q4-6H PRN (Reason: shortness of breath or wheezing) Qty: 8 0RF senna 8.6 mg capsule 8.6 mg PO DAILY PRN (Reason: constipation) Qty: 90 0RF clonidine HCl 0.1 mg tablet See Rx Instructions .ROUTE .COMPLEX Qty: 90 3RF Dose Instruction: TAKE ONE TABLET BY MOUTH AT BEDTIME . Rx Instructions: TAKE ONE TABLET BY MOUTH AT BEDTIME . levothyroxine 125 mcg tablet 125 mcg PO QDAY Qty: 90 0RF levonorgestrel-ethinyl estrad 0.15-0.03 mg tablet 1 tab PO DAILY Qty: 84 2RF Follow Up/Referrals: Trent Ch PA-C [Primary Care Provider, Family Practice] Stand Alone Forms: [facility] Info Instructions
[2025-05-16 21:16] LABS: Strep A DNA Probe* NOT DETECTED (Not Detectd)
--- NOTE | 2025-05-16 21:42 | CRLHL7_ITS ---
For Patients: As a result of the Cures Act, medical imaging exams and procedure reports are released immediately into your electronic medical record. You may view this report before your referring provider. If you have questions, please contact your health care provider. INDICATION: Cough and fever. TECHNIQUE: Chest 2 views. COMPARISON: March 17, 2025. FINDINGS: Cardiovascular and mediastinum: Heart size and vasculature are normal in caliber and appearance. Lungs and pleural spaces: Lungs are clear. No sign of infiltrate or mass. No sign of pleural effusion. No pneumothorax. Bones and soft tissues: No significant findings. IMPRESSION: No acute or significant findings. Dictated by Romel Squires MD @ 05/16/2025 9:57:33 PM (Electronically Signed)
== END 2025-05-16 22:16 | disposition home or self-care (01) ==
LOC: ED 22:04
PROVIDERS: Emergency Provider Family Medicine; PCP Physician Assistant Medical
DX: B34.9 Viral infection, unspecified (principal); R59.0 Localized enlarged lymph nodes
CPT/HCPCS: 71046; 87651; 99283; 99284